=== PATIENT | male | born 1975 | race Caucasian/White ===

== ENCOUNTER 2024-06-26 05:09 | Inpatient (IN) | payer MEDICARE, SELFPAY ==
[2024-06-26] VITALS (14 sets, daily range): BP systolic 85–127; BP diastolic 42–74; PULSE 67–86; RESP 12–20; TEMP 36.4–37.4; O2SAT 93–98; BMI 29.8; BMI 30.3
--- NOTE | ~2024-06-26 | CT_ITS ---
EXAMINATION: CT ANGIOGRAM CHEST CLINICAL INFORMATION: Shortness of breath. Lightheadedness. COMPARISON: None available. TECHNIQUE: Multiple axial images were obtained through the chest after the administration of 65 mL of Omnipaque 350 intravenous contrast. Extensive vascular post-processing including two-dimensional and three-dimensional reformatted images were created and reviewed on an independent workstation. SmartPrep technique This CT examination was performed using dose optimization techniques as appropriate, variously including the following: *Automated exposure control *Adjustment of mA and/or kV according to patient size (this includes techniques or standardized protocols for targeted exams where dose is matched to indication/reason for exam; i.e. extremities or head) *Use of iterative reconstruction technique DLP: 353 mGy centimeter. FINDINGS: There is intraluminal filling defects within the subsegmental pulmonary branches to the left lower lung lobe.. No aneurysm or dissection, thoracic aorta. Patchy linear and confluent attenuation abnormality centered in the dome basis and lingula and to a lesser extent right middle lobe. No pleural effusion. No pneumothorax. No honeycombing. No lymphadenopathy. No pericardial effusion. 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 Metallic hardware from a posterior fusion extending from T10 and T11 to the lumbar spine no included in the exam. No acute fracture or gross listhesis. CT/CT angio chest PE protocol IMPRESSION: Acute pulmonary artery emboli, subsegmental pulmonary branches to the left lower lung lobe. Acute versus chronic airway disease, lung bases lingula and right middle lobe. Findings communicated to the requesting physician Dr. Tato Goff in the emergency department at 1:39 PM on June 26, 2024. Fleischner guidelines were followed. Electronically signed by: Dariel Romero MD 06/26/2024 01:43 PM EDT
--- NOTE | ~2024-06-26 | XR_ITS ---
CLINICAL HISTORY: Shortness of breath 1 view chest x-ray Comparison: None Findings: The lungs are clear. Heart size is normal. No acute fracture. IMPRESSION: 1. No acute findings. This document has been electronically signed by: Gregor Early MD on 06/26/2024 07:44:31
--- NOTE | ~2024-06-26 | US_ITS ---
CLINICAL HISTORY: PE, eval for source Venous duplex ultrasound bilateral lower extremity Comparison: None Findings: The visualized deep veins are fully compressible with normal Doppler color flow and spectral tracings. No popliteal cyst. IMPRESSION: 1. Negative for bilateral lower extremity deep vein thrombosis. This document has been electronically signed by: Kate Tom MD on 06/26/2024 20:48:31
--- NOTE | 2024-06-26 05:34 | ECG_ITS ---
Test Reason : SOB Blood Pressure : */* mmHG Vent. Rate : 70 BPM Atrial Rate : 70 BPM P-R Int : 200 ms QRS Dur : 88 ms QT Int : 418 ms P-R-T Axes : 29 72 35 degrees QTcB Int : 451 ms Normal sinus rhythm Possible Anterior infarct , age undetermined ; could be related to body habitus and lead placement Abnormal ECG No previous ECGs available Referred By: Lynn Hagen Electronically Signed By: BRENDEN SORENSEN
[2024-06-26 05:52] LABS: Basophils Percent Auto 0.9 % (0-2); Eosinophils Absolute Auto 0.2 X10*3/uL (0.0-0.4); Eosinophils Percent Auto 4.1 % (0-4); Hemoglobin 11.7 g/dl (14.0-18.0); Imm Gran Abs Auto 0.01 X10*3/uL (0.00-0.03); Imm Gran Pct Auto 0.2 % (0.0-0.4); Lymphocytes Absolute Auto 2.2 X10*3/uL (1.2-4.9); Lymphocytes Percent Auto 47.7 % (20-40); MANUAL DIFF FLAG NO; Mean Corpuscular HGB Conc 32.5 g/dl (31.0-36.0); Mean Corpuscular Hemoglobin 28.7 pg (27.0-33.0); Mean Corpuscular Volume 88.2 fL (80.0-98.0); Monocytes Absolute Auto 0.5 X10*3/uL (0.1-1.2); Monocytes Percent Auto 9.8 % (2-11); Neutrophils Absolute Auto 1.7 x10*3/uL (2.0-8.3); Neutrophils Percent Auto 37.3 % (45-73); Platelet Count 238 X10*3/uL (160-400); Red Blood Count 4.08 X10*6/uL (4.60-5.80); Red Cell Distribution Width 14.1 % (11.0-16.0); White Blood Count 4.6 X10*3/uL (4.8-10.8)
[2024-06-26 06:05] LABS: Alanine Aminotransferase 24 U/L (0-40); Albumin Level 3.4 g/dL (3.5-5.0); Alkaline Phosphatase 75 U/L (39-117); Anion Gap 13 (12-20); Aspartate Amino Transferase 23 U/L (5-37); Bilirubin Total 0.1 mg/dL (0.0-1.0); Blood Urea Nitrogen 17 mg/dL (9-16); Calcium 8.3 mg/dL (8.4-10.2); Carbon Dioxide 23 mmol/L (22-29); Chloride 105 mmol/L (96-108); Creatinine Clr Calc Pharmacy 128.3; Estimated Glomerular Filt Rate > 60; Glucose Random 152 mg/dL (60-115); Potassium 4.3 mmol/L (3.3-5.1); Sodium 137 mmol/L (135-145); Total Protein 6.7 g/dL (6.5-8.0)
[2024-06-26] MEDS: 0.9 % Sodium Chloride 2,328 ML 2328 ML IV (06:05)
[2024-06-26] MEDS: cefTRIAXone sodium 1 GM VIAL IVPUSH (06:07)
[2024-06-26 06:16] LABS: Troponin-I High Sensitivity < 2.7 ng/L (<3.5-35.0)
[2024-06-26 07:00] LABS: Lactic Acid 3.6 mmol/L (0.5-2.0)
--- NOTE | 2024-06-26 07:03 | ED_ITS ---
HPI - General Adult General Chief complaint: Dizziness Stated complaint: SYNCOPAL EPISODE/ FEELING WEAK AND FAINT Time Seen by Provider: 06/26/24 07:01 Source: patient, EMS and old records reviewed Mode of arrival: EMS Limitations: no limitations History of Present Illness ED Provider: Massiel Matson PA-C HPI narrative: This is a 49-year-old male, with a history of hyperlipidemia, you had instability, alcohol use disorder, opioid use disorder on methadone, depression, anxiety, who presents emergency department via EMS from [facility] with concerns for near-syncope. He awoke this morning 3:00 a.m. and requested to have a sandwich as he was hungry. He states that while he was sitting, he dozed off. He states that he felt very tired, and requested nursing staff to take his blood pressure, blood pressure was low at 80 over 40s, and patient appear to be diaphoretic. The nursing team called EMS for transportation. In route, patient was given 1 L of IV fluids. Patient reports that approximately 10 days ago he had the GI bug, and had significant amount of nausea and vomiting. He states that he is feeling much better. He denies any chest pain. He does report that he had some shortness for breath while he [place] the [place] blood [place], he states that this has since resolved. Denies history of problems with his blood pressure in the past. He states that he last used fentanyl 1 month ago. History of IVDA. He denies any recent fevers, chills, abdominal pain, nausea, vomiting or diarrhea. No urinary symptoms. Prior to my evaluation, patient was also given 2-1/2 L of IV fluids as well as IV ceftriaxone. Patient states that he has had recent illness, reports that 2 weeks ago he had the stomach bug however states that his symptoms have since resolved. He denies any recent fevers, chills, chest pain, SOB, abdominal pain, nausea, vomiting or diarrhea. No urinary frequency or urgency. No urinary symptoms. MD complaint: Near-syncope Onset (ago): day(s) Relieving factors: none Exacerbating factors: none Associated symptoms: denies other symptoms Related Data Home Medications ?Medication ?Instructions ?Recorded ?Confirmed atorvastatin 20 mg tablet 20 mg PO BEDTIME 06/26/24 06/26/24 bupropion HCl 150 mg 24 hr tablet, 150 mg PO BID 06/26/24 06/26/24 extended release divalproex 250 mg tablet,delayed 750 mg PO BID 06/26/24 06/26/24 release folic acid 1 mg tablet 1 mg PO DAILY 06/26/24 06/26/24 gabapentin 300 mg capsule 600 mg PO TID 06/26/24 06/26/24 methadone 10 mg/mL oral 55 mg PO DAILY 06/26/24 06/26/24 concentrate (Methadone Intensol) mirtazapine 7.5 mg tablet 7.5 mg PO BEDTIME 06/26/24 06/26/24 olanzapine 5 mg tablet 5 mg PO BEDTIME 06/26/24 06/26/24 Allergies Allergy/AdvReac Type Severity Reaction Status Date / Time ketamine AdvReac Unknown Verified 06/26/24 05:28 prazosin AdvReac Unknown Verified 06/26/24 05:28 Review of Systems 2 Review of Systems: Yes all other systems are reviewed and are negative Constitutional: Constitutional: Reports as per [facility] Past Medical History Medical History Mood disorder Alcohol use disorder Hyperlipidemia Methadone dependence Polysubstance abuse Social History Social History Smoked in Last 30 Days: Yes Substance Use Type: Crack/Cocaine, Heroin and Marijuana Substance Use Frequency: Chronic Longstanding Advance Directives: No Do you have a plan to hurt others: Clear, Organized and Specific Physical Exam ED Vital Signs: Vital Signs - 24 hr 06/26/24 05:10 06/26/24 05:32 06/26/24 06:04 Temperature 97.6 F 97.6 F 97.6 F Pulse Rate 76 75 67 Respiratory Rate 16 16 14 Blood Pressure 85/42 L 86/55 L 90/52 L Pulse Oximetry 98 96 97 Oxygen Delivery Method Room Air Room Air Room Air 06/26/24 06:28 06/26/24 08:21 06/26/24 10:49 Temperature 97.7 F Pulse Rate 71 76 69 Respiratory Rate 14 16 14 Blood Pressure 102/59 L 102/52 L 115/65 Pulse Oximetry 97 96 98 Oxygen Delivery Method Room Air Room Air Room Air 06/26/24 10:50 06/26/24 10:50 06/26/24 10:51 Temperature Pulse Rate 69 69 75 Respiratory Rate Blood Pressure 115/65 127/74 111/69 Pulse Oximetry Oxygen Delivery Method 06/26/24 11:26 Temperature Pulse Rate 75 Respiratory Rate 16 Blood Pressure 110/70 Pulse Oximetry 95 Oxygen Delivery Method Room Air BMI result Body Mass Index 29.8 Const General: cooperative, comfortable and no acute distress Orientation/consciousness: patient oriented x3 Limitations: no limitations HENMT Head: Yes normal to inspection, Yes normocephalic and Yes atraumatic Ears: hearing grossly normal bilaterally General nose exam: Normal external nose present Face and sinus: Yes normal facial exam Mouth: Normal oral and palatal mucosa present, oropharynx normal and moist mucous membranes Throat: Yes posterior oropharynx normal Eyes General: appearance normal, both eyes and all related structures Eyelids: Yes eyelids normal Conjunctivae: conjunctivae normal Sclerae: sclerae normal Pupils: Equal, round and reactive pupils present and Pinpoint pupils EOM: EOMs intact bilaterally Neck Neck: Yes normal visual inspection, Yes full ROM and Yes no lymphadenopathy Lymphatic: no lymphadenopathy noted Chest Chest palpation & inspection: normal inspection of the chest Resp Effort & Inspection: normal respiratory effort and able to speak in complete sentences Auscultation: clear to auscultation bilaterally, no crackles, no rales, no rhonchi and no wheezes Cardio Rate: regular rate Rhythm: regular rhythm Heart sounds: S1 normal heart sound present and S2 normal heart sound present GI Other: Abdomen is soft, nontender, nondistended Inspection: Yes normal to inspection Skin General skin exam: no rashes or lesions noted Trauma: no lacerations or abrasions Wounds: no wounds Neuro General: patient oriented x3 and moves all extremities Cranial nerves: Yes Equal, round and reactive pupils present Extrem Other: No peripheral edema. No calf tenderness. General: Yes normal to inspection Right upper extremity: normal to inspection Left upper extremity: normal to inspection Right lower extremity: normal to inspection Left lower extremity: normal to inspection Course Reevaluation(s) Reevaluation #1: Repeat lactic acidosis at 2.7. Patient well-appearing, eating and drinking without difficulty. Given history of IVDA, in the setting of hypotension, and syncopal episode, patient is needs to be admitted for further workup. Discussed with hospitalist, recommending CTA. He spoke to hospitalist stating that he was short of breath therefore CTA was obtained. Time: 10:11 Reevaluation #2: CTA positive for PE. Discussed findings with patient. He does report that he believes he had a blood clot in his upper arm in the past. He states that this was many years ago. He is unsure if he was on anticoagulation. He states that he is not on anticoagulation at this time. They will place patient on heparin drip. Transfer of care initiated. Medications Administered Generic Name Dose Route Start Last Admin Trade Name Freq PRN Reason Stop Dose Admin Gabapentin 600 mg 06/26/24 15:00 06/26/24 14:38 Gabapentin 300 Mg Capsule PO 600 mg TID MILTON Administration Heparin Sodium/Sodium Chloride 25,000 unit in 250 mls @ 0 mls/hr 06/26/24 14:15 06/26/24 15:57 Heparin Sodium,Porcine/1/2ns IVCONT 14 units/kg/hr .Q0M MILTON 13.97 mls/hr Administration Protocol Per Protocol Nicotine 21 mg 06/26/24 14:15 06/26/24 15:07 Nicotine 21 Mg Patch.Td24 TRANSDERMA Not Given DAILY MILTON Sodium Chloride 3 ml 06/26/24 16:00 06/26/24 15:08 0.9 % Sodium Chloride Flush 3 Ml Syringe IVFLUSH Not Given QSHIFT MILTON Discontinued Medications Generic Name Dose Route Start Last Admin Trade Name Freq PRN Reason Stop Dose Admin Ceftriaxone Sodium 1 gm 06/26/24 05:41 06/26/24 06:07 Ceftriaxone Sodium 1 Gm Vial IVPUSH 06/26/24 05:42 1 gm ONCE ONE Administration Heparin Sodium (Porcine) 8,000 unit 06/26/24 14:08 06/26/24 15:37 Heparin Sodium,Porcine 5,000 Unit/Ml Vial 80 unit/kg (8000 unit) 06/26/24 14:09 8,000 unit IVPUSH Administration ONCE ONE Sodium Chloride 2,328 mls @ 2,328 mls/hr 06/26/24 05:41 06/26/24 09:08 Ns IV 06/26/24 06:40 Infused .Q1H STA Infusion Iohexol 65 ml 06/26/24 13:00 06/26/24 13:00 Iohexol 350 Mg/Ml 75 Ml Infus..Btl IV 06/26/24 13:01 65 ml ONCE ONE Administration Lorazepam 1 mg 06/26/24 14:35 06/26/24 14:51 Lorazepam 1 Mg Tablet PO 06/26/24 14:36 1 mg ONCE ONE Administration Methadone HCl 55 mg 06/26/24 13:45 06/26/24 14:13 Methadone Hcl 20 Mg/2 Ml Oral.Conc PO 06/26/24 13:46 55 mg ONCE ONE Administration Medical Decision Making Medical Decision Making [facility] Narrative: This is a 49-year-old male who presents emergency department for evaluation of near syncopal episode which occurred this morning. Patient had presented 5:10 a.m. this morning, hypotensive at 85/42, all other vital signs within normal limits. Patient had labs ordered as well as IV fluids, and IV ceftriaxone as patient was coughing on his arrival therefore thought was patient potentially had a pneumonia. Labs revealing leukopenic at 4.6, he has a normocytic anemia with an H&H of 11.7/36, chemistry revealing no significant electrolyte derangement, no evidence of SONAL, mildly hyperglycemic at 152 calcium 8.3. Troponin less than 2.7, albumin 3.4. He has already received 2300 L of IV fluids as well as 1 g of ceftriaxone. We will cover for possible pneumonia. Also added viral swabs, BNP, CPK. Awaiting UA. Plan: Labs, EKG, chest x-ray, UA, further ER evaluation needed. Differential Diagnosis Differential Diagnoses: The differential diagnosis associated with the presentation includes UTI, pneumonia, electrolyte derangement, ACS Lab Data [facility] Lab Attestation statement: I reviewed the patient's lab results. Patient with leukopenia at 4.6, H&H 11.7/36. Chemistry with no evidence of SONAL. Hyperglycemic at 152. Lactic acidosis at 3.6, repeat 2.7, troponin x2 negative. BNP less than 10. Albumin 3.4. Urine with no evidence of infection. U tox positive for methadone, and fentanyl. 06/26/24 14:28 06/26/24 05:46 Labs: Lab Results 06/26/24 06/26/24 06/26/24 Range/Units 05:46 07:27 07:51 WBC 4.6 L (4.8-10.8) X10*3/uL RBC 4.08 L (4.60-5.80) X10*6/uL Hgb 11.7 L (14.0-18.0) g/dl Hct 36.0 L (42.0-52.0) % MCV 88.2 (80.0-98.0) fL MCH 28.7 (27.0-33.0) pg MCHC 32.5 (31.0-36.0) g/dl RDW 14.1 (11.0-16.0) % Plt Count 238 (160-400) X10*3/uL MPV 9.0 L (9.4-12.4) fL Immature Gran % (Auto) 0.2 (0.0-0.4) % Neut % (Auto) 37.3 L (45-73) % Lymph % (Auto) 47.7 H (20-40) % [place] % (Auto) 9.8 (2-11) % Eos % (Auto) 4.1 H (0-4) % Baso % (Auto) 0.9 (0-2) % Lymph # (Auto) 2.2 (1.2-4.9) X10*3/uL [place] # (Auto) 0.5 (0.1-1.2) X10*3/uL Eos # (Auto) 0.2 (0.0-0.4) X10*3/uL Baso # (Auto) 0.0 (0.0-0.2) X10*3/uL Abs Immat Gran (auto) 0.01 (0.00-0.03) X10*3/uL Absolute Neuts (auto) 1.7 L (2.0-8.3) x10*3/uL Absolute Nucleated RBC 0.000 (0.0-0.012) X10*3/uL Nucleated RBC % (auto) 0.0 (0.0-0.2) /100WBC Sodium 137 (135-145) mmol/L Potassium 4.3 (3.3-5.1) mmol/L Chloride 105 (96-108) mmol/L Carbon Dioxide 23 (22-29) mmol/L Anion Gap 13 (12-20) BUN 17 H (9-16) mg/dL Creatinine 0.87 (0.5-1.4) mg/dL Estim Creat Clear Calc 128.3 Estimated GFR > 60 Random Glucose 152 H (60-115) mg/dL Lactic Acid 3.6 H* (0.5-2.0) mmol/L Lactic Acid F/U @ 2Hr (0.5-2.0) mmol/L Lactic Acid F/U @ 4Hr (0.5-2.0) mmol/L Calcium 8.3 L (8.4-10.2) mg/dL Total Bilirubin 0.1 (0.0-1.0) mg/dL AST 23 (5-37) U/L ALT 24 (0-40) U/L Alkaline Phosphatase 75 (39-117) U/L Total Creatine Kinase 138 (38-174) U/L Troponin I High Sens < 2.7 (<3.5-35.0) ng/L B-Natriuretic Peptide < 10 (<100) pg/mL Total Protein 6.7 (6.5-8.0) g/dL Albumin 3.4 L (3.5-5.0) g/dL Urine Color Yellow Urine Appearance Clear Urine pH 7.0 (5.0-9.0) Ur Specific [place] <= 1.005 (1.005-1.025) Urine Protein Negative (Neg-Trace) mg/dL Urine Glucose (UA) Negative (Negative) mg/dL Urine Ketones Negative (Negative) mg/dL Urine Blood Negative (Negative) Urine Nitrite Negative (Negative) Ur Leukocyte Esterase Negative (Negative) Urine RBC 0-2 (0-2) /HPF Urine WBC 0-5 (0-5) /HPF Ur Squamous Epith Cells 0-2 (0-2) /HPF Urine Bacteria None Seen (None Seen) Hyaline Casts 0-2 (0-2) /LPF Urine Opiates Screen Not Detected (Not Detect) Ur Buprenorphine Scrn Not Detected (Not Detect) ng/mL Ur Oxycodone Screen Not Detected (Not Detect) ng/mL Urine Methadone Screen Positive H (Not Detect) ng/mL Urine Fentanyl Screen POSITIVE H (Not Detect) Ur Barbiturates Screen Not Detected (Not Detect) Ur Phencyclidine Scrn Not Detected (Not Detect) Ur Amphetamines Screen Not Detected (Not Detect) U Benzodiazepines Scrn Not Detected (Not Detect) Urine Cocaine Screen Not Detected (Not Detect) U Marijuana (THC) Screen Not Detected (Not Detect) Ethyl Alcohol < 10 mg/dL Influenza Type A (PCR) NEGATIVE (Negative) Influenza Type B (PCR) NEGATIVE (Negative) RSV RNA Qual (PCR) NEGATIVE (Negative) SARS-CoV-2 RNA (RT-PCR) NEGATIVE (Negative) 06/26/24 06/26/24 06/26/24 Range/Units 07:58 09:09 11:30 WBC (4.8-10.8) X10*3/uL RBC (4.60-5.80) X10*6/uL Hgb (14.0-18.0) g/dl Hct (42.0-52.0) % MCV (80.0-98.0) fL MCH (27.0-33.0) pg MCHC (31.0-36.0) g/dl RDW (11.0-16.0) % Plt Count (160-400) X10*3/uL MPV (9.4-12.4) fL Immature Gran % (Auto) (0.0-0.4) % Neut % (Auto) (45-73) % Lymph % (Auto) (20-40) % [place] % (Auto) (2-11) % Eos % (Auto) (0-4) % Baso % (Auto) (0-2) % Lymph # (Auto) (1.2-4.9) X10*3/uL [place] # (Auto) (0.1-1.2) X10*3/uL Eos # (Auto) (0.0-0.4) X10*3/uL Baso # (Auto) (0.0-0.2) X10*3/uL Abs Immat Gran (auto) (0.00-0.03) X10*3/uL Absolute Neuts (auto) (2.0-8.3) x10*3/uL Absolute Nucleated RBC (0.0-0.012) X10*3/uL Nucleated RBC % (auto) (0.0-0.2) /100WBC Sodium (135-145) mmol/L Potassium (3.3-5.1) mmol/L Chloride (96-108) mmol/L Carbon Dioxide (22-29) mmol/L Anion Gap (12-20) BUN (9-16) mg/dL Creatinine (0.5-1.4) mg/dL Estim Creat Clear Calc Estimated GFR Random Glucose (60-115) mg/dL Lactic Acid (0.5-2.0) mmol/L Lactic Acid F/U @ 2Hr 2.7 H* (0.5-2.0) mmol/L Lactic Acid F/U @ 4Hr 2.4 H* (0.5-2.0) mmol/L Calcium (8.4-10.2) mg/dL Total Bilirubin (0.0-1.0) mg/dL AST (5-37) U/L ALT (0-40) U/L Alkaline Phosphatase (39-117) U/L Total Creatine Kinase (38-174) U/L Troponin I High Sens < 2.7 (<3.5-35.0) ng/L B-Natriuretic Peptide (<100) pg/mL Total Protein (6.5-8.0) g/dL Albumin (3.5-5.0) g/dL Urine Color Urine Appearance Urine pH (5.0-9.0) Ur Specific [place] (1.005-1.025) Urine Protein (Neg-Trace) mg/dL Urine Glucose (UA) (Negative) mg/dL Urine Ketones (Negative) mg/dL Urine Blood (Negative) Urine Nitrite (Negative) Ur Leukocyte Esterase (Negative) Urine RBC (0-2) /HPF Urine WBC (0-5) /HPF Ur Squamous Epith Cells (0-2) /HPF Urine Bacteria (None Seen) Hyaline Casts (0-2) /LPF Urine Opiates Screen (Not Detect) Ur Buprenorphine Scrn (Not Detect) ng/mL Ur Oxycodone Screen (Not Detect) ng/mL Urine Methadone Screen (Not Detect) ng/mL Urine Fentanyl Screen (Not Detect) Ur Barbiturates Screen (Not Detect) Ur Phencyclidine Scrn (Not Detect) Ur Amphetamines Screen (Not Detect) U Benzodiazepines Scrn (Not Detect) Urine Cocaine Screen (Not Detect) U Marijuana (THC) Screen (Not Detect) Ethyl Alcohol mg/dL Influenza Type A (PCR) (Negative) Influenza Type B (PCR) (Negative) RSV RNA Qual (PCR) (Negative) SARS-CoV-2 RNA (RT-PCR) (Negative) Independent Interpretation I performed an independent interpretation of an: EKG Interpretation: EKG normal sinus rhythm at a ventricular rate of 70 beats per minute, MD interval 200, QT QTC 418/451. No ST elevation or depression. Radiology Impression Discussion of test interpretation with radiology: I have reviewed the radiologist's reading. Radiologist Impression: CLINICAL HISTORY: Shortness of breath 1 view chest x-ray Comparison: None Findings: The lungs are clear. Heart size is normal. No acute fracture. IMPRESSION: 1. No acute findings. This document has been electronically signed by: Gregor Early MD on 06/26/2024 07:44:31 Dictated By: Gregor Early MD CT/CT angio chest PE protocol IMPRESSION: Acute pulmonary artery emboli, subsegmental pulmonary branches to the left lower lung lobe. Acute versus chronic airway disease, lung bases lingula and right middle lobe. Findings communicated to the requesting physician Dr. Tato Goff in the emergency department at 1:39 PM on June 26, 2024. Fleischner guidelines were followed. Electronically signed by: Dariel Romero MD 06/26/2024 01:43 PM EDT RP Dictated By: Dariel Hoffman MD Chronic Conditions Patient?s care impacted by: Other (History of IVDA) Discharge Plan Discharge Clinical Impression: Acidosis, lactic, Near syncope, Pulmonary embolism Patient Disposition: Still a Patient
[2024-06-26 07:53] LABS: B Type Natriuretic Peptide < 10 pg/mL (<100)
[2024-06-26 08:02] LABS: Appearance Urine Clear; Color Urine Yellow; Glucose Urine UA Negative (Negative); Leukocyte Esterase Urine Negative (Negative); Nitrite Urine Negative (Negative); Specific Gravity - Urine <= 1.005 (1.005-1.025); Urine Blood Negative (Negative); Urine Ketones Negative (Negative); Urine Protein Negative (Neg-Trace)
[2024-06-26 08:04] LABS: Bacteria Urine None Seen (None Seen); Hyaline Casts Urine 0-2 /LPF (0-2); RBC Urine 0-2 /HPF (0-2); Squamous Epithelial Cell Urine 0-2 /HPF (0-2); WBC Urine 0-5 /HPF (0-5)
[2024-06-26 08:11] LABS: Influenza A PCR NEGATIVE (Negative); Influenza B PCR NEGATIVE (Negative); Resp Syncy Virus RNA Qual PCR NEGATIVE (Negative); SARS COV2 PCR INHOUSE NEGATIVE (Negative)
[2024-06-26 08:12] LABS: Amphetamine Screen Urine Not Detected (Not Detect); Barbiturates, Urine Not Detected (Not Detect); Benzodiazepines Screen Urine Not Detected (Not Detect); Buprenorphine Scr Not Detected (Not Detect); Cannabinoid Screen Urine Not Detected (Not Detect); Cocaine Screen Urine Not Detected (Not Detect); Fentanyl, urine POSITIVE (Not Detect); Methadone Screen, Urine Positive (Not Detect); Opiate Screen Urine Not Detected (Not Detect); Oxycodone Screen Urine Not Detected (Not Detect); Phencyclidine Screen Urine Not Detected (Not Detect)
[2024-06-26 08:27] LABS: Troponin-I High Sensitivity < 2.7 ng/L (<3.5-35.0)
[2024-06-26 08:33] LABS: Reflex Lactate? Lactic Acid Added
[2024-06-26 09:35] LABS: Ethanol < 10 mg/dL
[2024-06-26 09:46] LABS: ~Lactic Acid-LAB USE ONLY 2.7 mmol/L (0.5-2.0)
[2024-06-26 11:13] LABS: Reflex Lactate? 2 Y
[2024-06-26 12:00] LABS: ~Lactic Acid-LAB USE ONLY 2.4 mmol/L (0.5-2.0)
--- NOTE | 2024-06-26 12:00 | PC.NURSE ---
Methadone dose verification: [facility] [address] [facility], [place] Dose verified with JOSUE Anthony [phone] Last dose: 06/18/24 @ 07:23am, Methadone 55mg PO Dosing verification form faxed to pharmacy by this RN.
--- NOTE | 2024-06-26 12:28 | HE.PHANOTE ---
Addendum entered by [facility], located within [facility] 06/26/24 13:44: New form sent up, pt last received 55mg on 06/25 per Colleen Naranjo ([phone]) at [facility]. Original Note: METHADONE Pt last received 55mg on 06/18/24 @ 0723 at [place], [place], per JOSUE Anthony.
--- NOTE | 2024-06-26 12:45 | PHA.MEDREC ---
Pharmacy Consult ? Medication Reconciliation Pharmacy has completed the medication reconciliation. Received medication list from [facility], used this to confirm home meds
[2024-06-26] MEDS: iohexoL 350 MG/ML 75 ML INFUS..BTL 65 ML IV (13:00)
--- NOTE | 2024-06-26 13:36 | PC.NURSE ---
THIS RN RECEIVED A CALL FROM PTS RN AT [facility]. SHE VERIFIED THAT PTS METHADONE DOSE IS 55 MG, LAST RECEIVED YEST MORNING
--- NOTE | 2024-06-26 14:12 | P.HPHOSP_ITS ---
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 Patient reports he developed lightheadedness and shortness of breath both at rest and with exertion last night which persisted until this morning. He was reported to be hypotensive with systolic blood pressure in the 70s. He states he did a GI illness about 10 days ago but has fully resolved and he has been eating and drinking without difficulty. He denies any headache, visual changes, cough, nausea, vomiting, diarrhea, urinary symptoms, palpitations, or chest pain. He reports that while ambulating in the ED, he has had some shortness of breath with exertion but lightheadedness has not recurred. He states he also feels generally weak. He reports his last IV drug abuse was about 9 months ago and has been stable on his dose of methadone since February. He does report history of clot in the right upper extremity for which he was admitted for anticoagulation and took blood thinners at home for an unknown period of time. He states this was years ago. Denies any known history of clotting disorder. Unsure of family history. Denies any recent travel. He has been treated for alcohol withdrawal with discontinuation of Valium and Ativan 06/23. Denies any going symptoms of withdrawal. On arrival to the ED patient was hypotensive to 85/42 with improvement to 127/74 following IV fluid resuscitation which did also improve his lightheadedness. Hematology studies significant for mild leukopenia of 4.6 and a normocytic anemia with H/H 11.7/36.0%. Renal function within normal limits, electrolyte levels normal. Initial lactic acid 3.6 with repeats of 2.7 and 2.4. Hepatic function within limits. Troponin undetectable x2. BNP undetectable. Urinalysis unremarkable. Negative for influenza, COVID-19, RSV urine drug screen positive for fentanyl and methadone. EKG shows NSR without any ST or depressions. CXR unremarkable. Chest CTA acute subsegmental pulmonary emboli branching to the left lower lung lobe. Patient will be admitted for further management of acute pulmonary embolism. Review of Systems 2 Review of Systems: Yes all other systems are reviewed and are negative PMFSH Medical History Mood disorder Alcohol use disorder Hyperlipidemia Methadone dependence Polysubstance abuse Social History Smoked in Last 30 Days: Yes Substance Use Type: Crack/Cocaine, Heroin and Marijuana Substance Use Frequency: Chronic Longstanding Advance Directives: No Do you have a plan to hurt others: Clear, Organized and Specific Meds Allergies Allergy/AdvReac Type Severity Reaction Status Date / Time ketamine AdvReac Unknown Verified 06/26/24 05:28 prazosin AdvReac Unknown Verified 06/26/24 05:28 Active Medications: Current Medications Heparin Sodium (Porcine) (Heparin Sodium,Porcine 5,000 Unit/Ml Vial) 8,000 unit 80 unit/kg (8000 unit) IVPUSH ONCE ONE Stop: 06/26/24 14:09 Heparin Sodium (Porcine) (Heparin Sodium,Porcine 5,000 Unit/Ml Vial) 4,000 unit 40 unit/kg (4000 unit) IVPUSH PROTOCOL BOLUS PRN; Protocol PRN Reason: 40 unit/kg - Heparin Protocol Heparin Sodium (Porcine) (Heparin Sodium,Porcine 5,000 Unit/Ml Vial) 8,000 unit 80 unit/kg (8000 unit) IVPUSH PROTOCOL BOLUS PRN; Protocol PRN Reason: 80 unit/kg - Heparin Protocol Heparin Sodium/Sodium Chloride (Heparin Sodium,Porcine/1/2ns) 25,000 unit in 250 mls @ 0 mls/hr IVCONT .Q0M [place]; Protocol Home Medications ?Medication ?Instructions ?Recorded ?Confirmed ?Last Taken ?Type atorvastatin 20 mg tablet 20 mg PO BEDTIME 06/26/24 06/26/24 Unknown History bupropion HCl 150 mg 24 hr tablet, 150 mg PO BID 06/26/24 06/26/24 Unknown History extended release divalproex 250 mg tablet,delayed 750 mg PO BID 06/26/24 06/26/24 Unknown History release folic acid 1 mg tablet 1 mg PO DAILY 06/26/24 06/26/24 Unknown History gabapentin 300 mg capsule 600 mg PO TID 06/26/24 06/26/24 Unknown History methadone 10 mg/mL oral 55 mg PO DAILY 06/26/24 06/26/24 06/25/24 History concentrate (Methadone Intensol) mirtazapine 7.5 mg tablet 7.5 mg PO BEDTIME 06/26/24 06/26/24 Unknown History olanzapine 5 mg tablet 5 mg PO BEDTIME 06/26/24 06/26/24 Unknown History Physical Exam 2 Vital Signs and Narrative: Vital Signs: Last Vital Signs Temp 97.7 F 06/26/24 06:28 Pulse 75 06/26/24 11:26 Resp 16 06/26/24 11:26 BP 110/70 06/26/24 11:26 Pulse Ox 95 06/26/24 11:26 O2 Del Method Room Air 06/26/24 11:26 BMI result Body Mass Index 29.8 Constitutional - Awake and Alert, No apparent distress Eyes - PERRLA, EOMI Cardiovascular - S1S2, RRR, No edema Respiratory - Normal lung expansion, Normal respiratory effort, No respiratory distress, CTA bilaterally Gastrointestinal - NT / ND; +BS; No rebound or guarding Extremities - no calf tenderness bilaterally, no swelling Skin - Warm/Dry Neurological - Alert & oriented x3, CN II-XII in tact, 5/5 strength BUE and BLE Psychological - anxious appearing Results Labs 06/26/24 14:28 06/26/24 05:46 Labs: Laboratory Results - last 24 hr 06/26/24 06/26/24 06/26/24 05:46 07:27 07:51 MCV 88.2 MCH 28.7 MCHC 32.5 RDW 14.1 Plt Count 238 MPV 9.0 L Immature Gran % (Auto) 0.2 Neut % (Auto) 37.3 L Lymph % (Auto) 47.7 H [place] % (Auto) 9.8 Eos % (Auto) 4.1 H Baso % (Auto) 0.9 Lymph # (Auto) 2.2 [place] # (Auto) 0.5 Eos # (Auto) 0.2 Baso # (Auto) 0.0 Abs Immat Gran (auto) 0.01 Absolute Neuts (auto) 1.7 L Absolute Nucleated RBC 0.000 Nucleated RBC % (auto) 0.0 Anion Gap 13 Estim Creat Clear Calc 128.3 Estimated GFR > 60 Random Glucose 152 H Lactic Acid 3.6 H* Lactic Acid F/U @ 2Hr Lactic Acid F/U @ 4Hr Calcium 8.3 L Total Bilirubin 0.1 AST 23 ALT 24 Alkaline Phosphatase 75 Total Creatine Kinase 138 B-Natriuretic Peptide < 10 Total Protein 6.7 Albumin 3.4 L Urine Color Yellow Urine Appearance Clear Urine pH 7.0 Ur Specific [place] <= 1.005 Urine Protein Negative Urine Glucose (UA) Negative Urine Ketones Negative Urine Blood Negative Urine Nitrite Negative Ur Leukocyte Esterase Negative Urine RBC 0-2 Urine WBC 0-5 Ur Squamous Epith Cells 0-2 Urine Bacteria None Seen Hyaline Casts 0-2 Urine Opiates Screen Not Detected Ur Buprenorphine Scrn Not Detected Ur Oxycodone Screen Not Detected Urine Methadone Screen Positive H Urine Fentanyl Screen POSITIVE H Ur Barbiturates Screen Not Detected Ur Phencyclidine Scrn Not Detected Ur Amphetamines Screen Not Detected U Benzodiazepines Scrn Not Detected Urine Cocaine Screen Not Detected U Marijuana (THC) Screen Not Detected Ethyl Alcohol < 10 Influenza Type A (PCR) NEGATIVE Influenza Type B (PCR) NEGATIVE RSV RNA Qual (PCR) NEGATIVE SARS-CoV-2 RNA (RT-PCR) NEGATIVE 06/26/24 06/26/24 09:09 11:30 MCV MCH MCHC RDW Plt Count MPV Immature Gran % (Auto) Neut % (Auto) Lymph % (Auto) [place] % (Auto) Eos % (Auto) Baso % (Auto) Lymph # (Auto) [place] # (Auto) Eos # (Auto) Baso # (Auto) Abs Immat Gran (auto) Absolute Neuts (auto) Absolute Nucleated RBC Nucleated RBC % (auto) Anion Gap Estim Creat Clear Calc Estimated GFR Random Glucose Lactic Acid Lactic Acid F/U @ 2Hr 2.7 H* Lactic Acid F/U @ 4Hr 2.4 H* Calcium Total Bilirubin AST ALT Alkaline Phosphatase Total Creatine Kinase B-Natriuretic Peptide Total Protein Albumin Urine Color Urine Appearance Urine pH Ur Specific [place] Urine Protein Urine Glucose (UA) Urine Ketones Urine Blood Urine Nitrite Ur Leukocyte Esterase Urine RBC Urine WBC Ur Squamous Epith Cells Urine Bacteria Hyaline Casts Urine Opiates Screen Ur Buprenorphine Scrn Ur Oxycodone Screen Urine Methadone Screen Urine Fentanyl Screen Ur Barbiturates Screen Ur Phencyclidine Scrn Ur Amphetamines Screen U Benzodiazepines Scrn Urine Cocaine Screen U Marijuana (THC) Screen Ethyl Alcohol Influenza Type A (PCR) Influenza Type B (PCR) RSV RNA Qual (PCR) SARS-CoV-2 RNA (RT-PCR) Imaging Radiologist's Impressions: Impressions Chest CTA 06/26/24 12:52 IMPRESSION: Acute pulmonary artery emboli, subsegmental pulmonary branches to the left lower lung lobe. Acute versus chronic airway disease, lung bases lingula and right middle lobe. Findings communicated to the requesting physician Dr. Tato Goff in the emergency department at 1:39 PM on June 26, 2024. Fleischner guidelines were followed. 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 Has history of right upper extremity DVT -echocardiogram -monitor on telemetry # hypotension -possibly orthostatic given improvement with IV fluids, less likely related to above given improvement with fluids -close monitoring of vital signs #Acute lactic acidosis -likely r/t poor perfusion from hypotension, not sepsis # mood disorder with HI -continue medications initiated [facility] consult -will need care team consult once medically cleared # alcohol use disorder -no acute withdrawal # hyperlipidemia -statin DVT prophylaxis-heparin per protocol Full code Section 12 filed. Will require care team evaluation due to SI/HI for which he was admitted to [facility]. Discussed with psychiatry Patient requires inpatient stay least 2 midnights for management of acute pulmonary embolism requiring IV heparin and expert consultation Quality Stroke Does the patient have a stroke diagnosis?: No VTE Prior VTE?: No VTE Risk Level:: Medical - moderate - high VTE Device Contraindication: Treatment Not Indicated VTE Drug Contraindication: N/A - Med Ordered
[2024-06-26] MEDS: methADONE HCl 20 MG/2 ML ORAL.CONC 55 MG PO (14:13)
[2024-06-26 14:35] LABS: Hematocrit 35.3 % (42.0-52.0); Hemoglobin 11.6 g/dl (14.0-18.0); Mean Corpuscular HGB Conc 32.9 g/dl (31.0-36.0); Mean Corpuscular Hemoglobin 29.2 pg (27.0-33.0); Mean Corpuscular Volume 88.9 fL (80.0-98.0); Mean Platelet Volume 9.3 fL (9.4-12.4); Platelet Count 231 X10*3/uL (160-400); Red Blood Count 3.97 X10*6/uL (4.60-5.80); White Blood Count 4.7 X10*3/uL (4.8-10.8)
[2024-06-26] MEDS: Gabapentin 300 MG CAPSULE 600 MG PO ×2 (14:38→20:29)
[2024-06-26 14:43] LABS: INTERNATIONAL NORM RATIO 0.9 (0.9-1.1); Prothrombin Time 10.8 SEC (10.9-12.4)
[2024-06-26 14:47] LABS: D Dimer High Sensitivity < 150 NG/ML
[2024-06-26] MEDS: LORazepam 1 MG TABLET PO ×2 (14:51→22:28)
[2024-06-26 15:14] LABS: Partial Thromboplastin Time 32.2 SEC (26.0-36.8)
[2024-06-26] MEDS: Heparin Sodium,Porcine 5,000 UNIT/ML VIAL 8000 UNIT IVPUSH (15:37)
--- NOTE | 2024-06-26 15:42 | P.CNHO_ITS ---
Subjective - Subjective Chief complaint: Shortness of breath and dizziness Patient: new to practice Consult date: 06/26/24 Primary Care Provider: Unknown Physician [employer]utter Utilized?: No - [place] Speaking HPI - Consult Narrative Reason for consult: Pulmonary emboli Narrative: José Luis Adames is a 49 year old male with history of IV drug abuse in remission, mood disorder who presented to ED from [facility] where he was being treated for alcohol withdrawal. Patient reports he developed lightheadedness and shortness of breath both at rest and with exertion last night which persisted until this morning. He was reported to be hypotensive with systolic blood pressure in the 70s. He states he did a GI illness about 10 days ago but has fully resolved and he has been eating and drinking without difficulty. He denies any headache, visual changes, cough, nausea, vomiting, diarrhea, urinary symptoms, palpitations, or chest pain. He reports that while ambulating in the ED, he has had some shortness of breath with exertion but lightheadedness has not recurred. He states he also feels generally weak. He reports his last IV drug abuse was about 9 months ago and has been stable on his dose of methadone since February. Denies any known history of clotting disorder. Unsure of family history. Denies any recent travel. He has been treated for alcohol withdrawal with discontinuation of Valium and Ativan 06/23. Denies any going symptoms of withdrawal. On arrival to the ED patient was hypotensive to 85/42 with improvement to 127/74 following IV fluid resuscitation which did also improve his lightheadedness. Hematology studies significant for mild leukopenia of 4.6 and a normocytic anemia with H/H 11.7/36.0%. Renal function within normal limits, electrolyte levels normal. Chest CTA acute subsegmental pulmonary emboli branching to the left lower lung lobe. Patient will be admitted for further management of acute pulmonary embolism. Patient states that he was treated for thrombosis involving right upper extremity many years ago. This occurred in the setting of IV drug abuse. He says he was on anticoagulation for about 2 weeks. He denies any recent surgery or lower extremity trauma. Review of Systems - Constitutional Denies lack of energy, Denies malaise, Denies night sweats, Denies weakness PMFSH Medical History: Medical History (Last Reviewed 06/26/24 @ 14:35 by JOSEPH Lee) Alcohol use disorder Hyperlipidemia Methadone dependence Mood disorder Polysubstance abuse Social History: Social History (Last Reviewed 06/26/24 @ 14:35 by JOSEPH Lee) Alcohol History Details: 1. How often do you have a drink containing alcohol?: b. Monthly or less Tobacco History: Smoked in Last 30 Days: Yes Substance Use History: Substance Use Type: Crack/Cocaine Substance Use Type: Heroin Substance Use Type: Marijuana Substance Use Frequency: Chronic Longstanding Advance Directives: Advance Directives: No Advance Directives Information Provided: Advance Directives Information Provided comment: declined Homicidal Assessment: Do you have a plan to hurt others: Clear Do you have a plan to hurt others: Organized Do you have a plan to hurt others: Specific Home Medications and Allergies Current Medications: Current Medications Acetaminophen (Acetaminophen 325 Mg Tablet) 650 mg PO Q6H PRN PRN Reason: Pain, Mild 1-3,fever,headache Atorvastatin Calcium (Atorvastatin Calcium 20 Mg Tablet) 20 mg PO BEDTIME [place] Bupropion HCl (Bupropion Hcl Xl 150 Mg Tab.Er.24h) 150 mg PO BID [facility] Calcium Carbonate (Calcium Carbonate 750 Mg Tab.Chew) 750 mg PO Q4H PRN PRN Reason: Heartburn Divalproex Sodium (Divalproex Sodium 250 Mg Tablet.Dr) 750 mg PO BID [facility] Folic Acid (Folic Acid 1 Mg Tablet) 1 mg PO DAILY [facility] Gabapentin (Gabapentin 300 Mg Capsule) 600 mg PO TID [facility] Last Admin: 06/26/24 14:38 Dose: 600 mg Heparin Sodium (Porcine) (Heparin Sodium,Porcine 5,000 Unit/Ml Vial) 4,000 unit 40 unit/kg (4000 unit) IVPUSH PROTOCOL BOLUS PRN; Protocol PRN Reason: 40 unit/kg - Heparin Protocol Heparin Sodium (Porcine) (Heparin Sodium,Porcine 5,000 Unit/Ml Vial) 8,000 unit 80 unit/kg (8000 unit) IVPUSH PROTOCOL BOLUS PRN; Protocol PRN Reason: 80 unit/kg - Heparin Protocol Heparin Sodium/Sodium Chloride (Heparin Sodium,Porcine/1/2ns) 25,000 unit in 250 mls @ 0 mls/hr IVCONT .Q0M [facility]; Protocol Magnesium Hydroxide (Milk Of Magnesia 30 Ml Oral.Susp) 30 ml PO DAILY PRN PRN Reason: Constipation Melatonin (Melatonin 3 Mg Tablet) 6 mg PO BEDTIME PRN PRN Reason: Insomnia Methadone HCl (Methadone Hcl 20 Mg/2 Ml Oral.Conc) 55 mg PO DAILY [facility] Mirtazapine (Mirtazapine 7.5 Mg Tablet) 7.5 mg PO BEDTIME [facility] Nicotine (Nicotine 21 Mg Patch.Td24) 21 mg TRANSDERMA DAILY [facility] Last Admin: 06/26/24 15:07 Dose: Not Given Nicotine Polacrilex (Nicotine Polacrilex Lozenge 2 Mg Lozenge) 2 mg BUCCAL Q2H PRN PRN Reason: Nicotine Cravings Olanzapine (Olanzapine 5 Mg Tablet) 5 mg PO BEDTIME [place] Ondansetron HCl (Ondansetron Hcl 4 Mg/2 Ml Vial) 4 mg IVPUSH Q8H PRN PRN Reason: Nausea and Vomiting Sodium Chloride (0.9 % Sodium Chloride Flush 3 Ml Syringe) 3 ml IVFLUSH QSHIFT [facility] Last Admin: 06/26/24 15:08 Dose: Not Given Home Medications ?Medication ?Instructions ?Recorded ?Confirmed ?Type atorvastatin 20 mg tablet 20 mg PO BEDTIME 06/26/24 06/26/24 History bupropion HCl 150 mg 24 hr tablet, 150 mg PO BID 06/26/24 06/26/24 History extended release divalproex 250 mg tablet,delayed 750 mg PO BID 06/26/24 06/26/24 History release folic acid 1 mg tablet 1 mg PO DAILY 06/26/24 06/26/24 History gabapentin 300 mg capsule 600 mg PO TID 06/26/24 06/26/24 History methadone 10 mg/mL oral 55 mg PO DAILY 06/26/24 06/26/24 History concentrate (Methadone Intensol) mirtazapine 7.5 mg tablet 7.5 mg PO BEDTIME 06/26/24 06/26/24 History olanzapine 5 mg tablet 5 mg PO BEDTIME 06/26/24 06/26/24 History Allergies Allergy/AdvReac Type Severity Reaction Status Date / Time ketamine AdvReac Unknown Verified 06/26/24 05:28 prazosin AdvReac Unknown Verified 06/26/24 05:28 Physical Exam Vital signs: Vital Signs Temp 97.8 F 06/26/24 14:39 Pulse 83 06/26/24 14:39 Resp 16 06/26/24 14:39 BP 119/68 06/26/24 14:39 Pulse Ox 95 06/26/24 14:39 O2 Del Method Room Air 03/11/25 14:39 Intake & Output 06/25/24 06/26/24 06/26/24 18:59 06:59 18:59 Intake Total 2327 Balance 2327 Intake: Intake, IV Amount 2327 / 232 0.9 % Sodium Chloride 2,328 ml 2327 / 2328 @ 2328 mls/hr IV .Q1H [facility] Rx#: [id number] Other: Weight 99.79 kg 101.3 kg [place] Weight in Grams [id number] Weight 101.3 kg - Constitutional Present: no acute distress, average body habitus - Routine HEENT Exam Head: Present: normal inspection Eye: Present: EOMI, PERRL - Routine Neck Exam Present: supple. Absent: lymphadenopathy - Routine Respiratory Exam Present: CTAB - Routine Cardiovascular Exam Cardiovascular: Present: RRR, S1, S2 - Routine Abdominal Exam Present: soft - Routine Extremities Exam Present: pulses intact. Absent: pedal edema - Routine Skin Exam Present: intact Hem/Onc Consult Result - Labs CBC & Chem 7: 06/26/24 14:28 06/26/24 05:46 Labs: Short CBC 06/26/24 06/26/24 Range/Units 05:46 14:28 WBC 4.6 L 4.7 L (4.8-10.8) X10*3/uL Hgb 11.7 L 11.6 L (14.0-18.0) g/dl Hct 36.0 L 35.3 L (42.0-52.0) % Plt Count 238 231 (160-400) X10*3/uL BMP 06/26/24 05:46 Sodium 137 Potassium 4.3 Chloride 105 Carbon Dioxide 23 BUN 17 H Creatinine 0.87 Calcium 8.3 L Cardiac Enzymes 06/26/24 Range/Units 05:46 Total Creatine Kinase 138 (38-174) U/L Liver Function 06/26/24 Range/Units 05:46 Total Bilirubin 0.1 (0.0-1.0) mg/dL AST 23 (5-37) U/L ALT 24 (0-40) U/L Alkaline Phosphatase 75 (39-117) U/L Albumin 3.4 L (3.5-5.0) g/dL Urine 06/26/24 Range/Units 07:51 Urine Color Yellow Urine Appearance Clear Urine pH 7.0 (5.0-9.0) Ur Specific [place] <= 1.005 (1.005-1.025) Urine Protein Negative (Neg-Trace) mg/dL Urine Glucose (UA) Negative (Negative) mg/dL Assessment and Plan Patient Active problem list reviewed?: Yes (1) Pulmonary embolism Status: Acute Assessment and plan: 1. This is a 49-year-old male past medical history significant for IV drug abuse, currently in remission who is being admitted for acute pulmonary emboli. CT angiogram performed 06/26/2024 shows subsegmental pulmonary emboli in the left lower lung. Echocardiogram is pending. He was briefly hypotensive, this responded to fluid resuscitation. He does not have large clot burden to explain hypotension. Agree with IV heparin for now. Patient was advised about smoking cessation, he is a chronic smoker. He can be transitioned to Eliquis when he is hemodynamically stable. No thrombophilia workup is indicated at this time. He would be a candidate for long-term anticoagulation as he has had a spontaneous thromboembolism. I also recommended bilateral lower extremity Doppler to see if source can be found. I thank you for the consultation. - Time Spent With Patient Time Spent with Patient (in minutes): 25 Additional Coding: - Additional E/M codes Complex E/M visit Add On: CPT G2211
[2024-06-26] MEDS: Heparin Sodium,Porcine/1/2NS 25,000 UNIT/250 ML IV.SOLN 13.97 UNIT IVCONT (15:57)
[2024-06-26] MEDS: Atorvastatin Calcium 20 MG TABLET PO (20:29)
[2024-06-26] MEDS: Nicotine Polacrilex Lozenge 2 MG LOZENGE BUCCAL (20:29)
[2024-06-26] MEDS: OLANZapine 5 MG TABLET PO (20:29)
[2024-06-26] MEDS: Mirtazapine 7.5 MG TABLET PO (20:29)
[2024-06-26] MEDS: Divalproex Sodium 250 MG TABLET.DR 750 MG PO (20:29)
[2024-06-26] MEDS: buPROPion HCl XL 150 MG TAB.ER.24H PO (20:29)
[2024-06-26] MEDS: 0.9 % Sodium Chloride Flush 3 ML SYRINGE IVFLUSH (20:30)
[2024-06-26 22:15] LABS: PTT Heparin Drip 66.7 SEC (53-77.9)
[2024-06-27] VITALS (8 sets, daily range): BP systolic 116–134; BP diastolic 63–83; PULSE 71–91; RESP 17–20; TEMP 36.4–37.1; O2SAT 93–96
[2024-06-27 04:28] LABS: PTT Heparin Drip 57.9 SEC (53-77.9)
[2024-06-27] MEDS: Nicotine Polacrilex Lozenge 2 MG LOZENGE BUCCAL ×6 (04:58→21:24)
[2024-06-27 06:22] LABS: MANUAL DIFF FLAG NO
[2024-06-27 06:25] LABS: Basophils Absolute Auto 0.1 X10*3/uL (0.0-0.2); Basophils Percent Auto 1.2 % (0-2); Eosinophils Absolute Auto 0.2 X10*3/uL (0.0-0.4); Eosinophils Percent Auto 3.3 % (0-4); Hematocrit 37.7 % (42.0-52.0); Imm Gran Abs Auto 0.01 X10*3/uL (0.00-0.03); Imm Gran Pct Auto 0.2 % (0.0-0.4); Lymphocytes Absolute Auto 2.8 X10*3/uL (1.2-4.9); Lymphocytes Percent Auto 49.8 % (20-40); Mean Corpuscular HGB Conc 31.8 g/dl (31.0-36.0); Mean Corpuscular Hemoglobin 28.5 pg (27.0-33.0); Mean Corpuscular Volume 89.5 fL (80.0-98.0); Mean Platelet Volume 9.8 fL (9.4-12.4); Monocytes Absolute Auto 0.5 X10*3/uL (0.1-1.2); Monocytes Percent Auto 8.1 % (2-11); Neutrophils Absolute Auto 2.1 x10*3/uL (2.0-8.3); Neutrophils Percent Auto 37.4 % (45-73); Platelet Count 253 X10*3/uL (160-400); Red Blood Count 4.21 X10*6/uL (4.60-5.80); Red Cell Distribution Width 14.1 % (11.0-16.0); White Blood Count 5.7 X10*3/uL (4.8-10.8)
[2024-06-27 06:34] LABS: PTT Heparin Drip 52.7 SEC (53-77.9)
[2024-06-27 06:40] LABS: Anion Gap 15 (12-20); Blood Urea Nitrogen 17 mg/dL (9-16); Calcium 9.3 mg/dL (8.4-10.2); Carbon Dioxide 27 mmol/L (22-29); Chloride 103 mmol/L (96-108); Creatinine Clr Calc Pharmacy 134.5; Estimated Glomerular Filt Rate > 60; Glucose Random 130 mg/dL (60-115); Potassium 4.5 mmol/L (3.3-5.1); Sodium 140 mmol/L (135-145)
--- NOTE | 2024-06-27 07:00 | CA_ITS ---
Transthoracic Echocardiogram Patient (Last, First, Middle): José Luis Adames, Gender: Male Date of : 1975 Age: 49 Procedure Date: 06/27/2024 Procedure Type: Transthoracic [place]ocardi[place] [facility] [place]: 182.88 cm Weight: 99.34 kg BSA: 2.21 m2 Heart Rate: bpm BP: 116 / 72 mmHg Care Program Director: SB Referring MD: Karoline RUIZ Symptoms: bilateral PE Study Quality: Fair ECG Rhythm: Sinus Conclusions: - The left ventricular systolic function is normal. The calculated ejection fraction is 66% by biplane method. - The basal inferior and basal inferolateral segments are hypokinetic. - No obvious valvular pathology seen on this study. Findings Procedure Information The study quality is limited by lung artifact. Left Ventricle Normal left ventricular cavity size. There is normal left ventricular wall thickness. The left ventricular systolic function is normal. The calculated ejection fraction is 66% by biplane method. Diastolic function is normal for age. Wall Motion Rest Echo Findings The basal inferior and basal inferolateral segments are hypokinetic. Right Ventricle Normal right ventricular cavity size and systolic function. Atria Both atria are normal in size. Aortic Valve There is a normal trileaflet aortic valve. There is no aortic valve stenosis. There is no aortic valve regurgitation. Mitral Valve The mitral valve appears normal. There is no mitral valve regurgitation. There is no mitral valve stenosis. Pulmonic Valve The pulmonic valve is likely normal. Tricuspid Valve There is no tricuspid valve regurgitation. There is no evidence of pulmonary hypertension. Great Vessels The asc aorta and aortic arch are normal in size. Venous The inferior vena cava is normal in size and collapses less than 50% with inspiration. Pericardium/Pleural There is no evidence of pericardial effusion. Prior Study Comparison No prior study available for comparison. Recommendations, Care & Conclusions No obvious valvular pathology seen on this study. Measurements 2D Linear Measurements IVSd: 0.73 0.6-0.9/0.6-1.0 cm LVIDd: 4.79 3.9-5.3/4.2-5.9 cm LVIDd Index: 2.17 2.4-3.2/2.2-3.1 cm/m2 LVIDs: 3.31 2.0-3.6 cm LVPWd: 0.66 0.7-1.1 cm LA Diam: 4.00 2.7-3.8/3.0-4.0 cm LAIDs Index: 1.81 1.5-2.3 cm/m2 LV Mass: 131.05 67-162/88-224 g LV Mass Index: 59.30 43-95/49-115 g/m2 LVOT Diam: 2.00 3.0+(-)1.3 cm 2D Systolic Function EF 4C: 66.00 >55% EF 2C: 64.40 >55% EF BiP: 65.80 >55% Mitral Valve MV Pk E: 0.89 MV PK A: 0.54 MV Decel Time: 208.00 E/A: 1.70 E'Lateral: 17.30 E'Medial: 7.40 E/E' Med: 12.00 E/E' Lat: 5.20 PHT: 61.00 MVA PHT: 3.61 Decel [place]: 4.28 Aortic Valve AoV Pk [place]: 1.47 AoV Pk Grad: 9.00 KAILEY: 3.01 LVOT LVOT Pk D[place]: 1.31 LVOT Mn D[place]: 0.85 LVOT VTI: 0.20 LVOT Pk Grad: 7.00 LVOT Mn Grad: 3.00 LVOT Diam: 2.00 LVOT Area: 3.14 Diastolic Function MV Pk E: 0.89 MV Pk A: 0.54 E/A: 1.70 E'Medial: 7.40 E/E' Med: 12.00 E' Laterial: 17.30 E/E' Lat: 5.20 Right Ventricle TAPSE (mm): 38.20 TVS' Darrion: 18.00 Tricuspid Valve RA Press: 8.00 Great Vessels Aorta Sinus of Valsalva: 3.40 2.0-3.5 cm Ao Asc: 3.40 2.1-3.4 cm Ao Arch: 3.30 Ao Desc: 1.40 Pulmonary Valve PV Pk Darrion: 1.54 Peak PV Grad: 9.00 Updated in Other Vendor System with Status of Final Gabo Zhang MD electronically signed on 06/27/2024 10:52:48 AM with status of Final
[2024-06-27] MEDS: Gabapentin 300 MG CAPSULE 600 MG PO ×3 (08:53→21:19)
[2024-06-27] MEDS: buPROPion HCl XL 150 MG TAB.ER.24H PO ×2 (08:53→21:20)
[2024-06-27] MEDS: Nicotine 21 MG PATCH.TD24 TRANSDERMA (08:53)
[2024-06-27] MEDS: Divalproex Sodium 250 MG TABLET.DR 750 MG PO ×2 (08:53→21:19)
[2024-06-27] MEDS: Folic Acid 1 MG TABLET PO (08:53)
[2024-06-27] MEDS: methADONE HCl 20 MG/2 ML ORAL.CONC 55 MG PO (08:54)
--- NOTE | 2024-06-27 09:25 | HO.PM.IMPN ---
Subjective Subjective Date of Service: 06/27/24 Interval History: Improvement in dyspnea. Continues to have dizziness when standing up from a seated position. No chest pain Review of Systems All other systems are reviewed and are negative as noted above Review of Systems: Yes all other systems are reviewed and are negative Physical Exam Vital Signs: Vital Signs: Last Vital Signs Temp 97.6 F 06/27/24 08:00 Pulse 75 06/27/24 08:00 Resp 18 06/27/24 08:00 BP 120/63 06/27/24 08:00 Pulse Ox 96 06/27/24 08:00 O2 Del Method Room Air 06/27/24 08:00 BMI result Body Mass Index 29.8 Const: Other: Middle-aged male lying in bed in no distress Neck supple, no JVD Regular rate and rhythm, S1-S2 heard Regular breath sounds bilaterally, no wheezing or crackles appreciated Abdomen soft nontender, no guarding, no rigidity Patient is awake, alert and oriented to self, place, time and person ; no focal motor deficit Psych: Anxious No pedal edema Objective Data Active Medications Acetaminophen (Acetaminophen 325 Mg Tablet) 650 mg PO Q6H PRN PRN Reason: Pain, Mild 1-3,fever,headache Atorvastatin Calcium (Atorvastatin Calcium 20 Mg Tablet) 20 mg PO BEDTIME [facility] Last Admin: 06/26/24 20:29 Dose: 20 mg Documented By: SHERITA Bupropion HCl (Bupropion Hcl Xl 150 Mg Tab.Er.24h) 150 mg PO BID [facility] Last Admin: 06/27/24 08:53 Dose: 150 mg Documented By: GURDEEP Calcium Carbonate (Calcium Carbonate 750 Mg Tab.Chew) 750 mg PO Q4H PRN PRN Reason: Heartburn Divalproex Sodium (Divalproex Sodium 250 Mg Tablet.Dr) 750 mg PO BID [facility] Last Admin: 06/27/24 08:53 Dose: 750 mg Documented By: GURDEEP Folic Acid (Folic Acid 1 Mg Tablet) 1 mg PO DAILY [facility] Last Admin: 06/27/24 08:53 Dose: 1 mg Documented By: GURDEEP Gabapentin (Gabapentin 300 Mg Capsule) 600 mg PO TID [facility] Last Admin: 06/27/24 08:53 Dose: 600 mg Documented By: GURDEEP Heparin Sodium (Porcine) (Heparin Sodium,Porcine 5,000 Unit/Ml Vial) 4,000 unit 40 unit/kg (4000 unit) IVPUSH PROTOCOL BOLUS PRN; Protocol PRN Reason: 40 unit/kg - Heparin Protocol Heparin Sodium (Porcine) (Heparin Sodium,Porcine 5,000 Unit/Ml Vial) 8,000 unit 80 unit/kg (8000 unit) IVPUSH PROTOCOL BOLUS PRN; Protocol PRN Reason: 80 unit/kg - Heparin Protocol Heparin Sodium/Sodium Chloride (Heparin Sodium,Porcine/1/2ns) 25,000 unit in 250 mls @ 0 mls/hr IVCONT .Q0M [place]; Protocol Last Titration: 06/27/24 05:23 Dose: 14 units/kg/hr, 13.97 mls/hr Documented By: SHERITA Co-signed By: MAITE Lorazepam (Lorazepam 1 Mg Tablet) 1 mg PO ONCE ONE Stop: 06/27/24 09:21 Magnesium Hydroxide (Milk Of Magnesia 30 Ml Oral.Susp) 30 ml PO DAILY PRN PRN Reason: Constipation Melatonin (Melatonin 3 Mg Tablet) 6 mg PO BEDTIME PRN PRN Reason: Insomnia Methadone HCl (Methadone Hcl 20 Mg/2 Ml Oral.Conc) 55 mg PO DAILY [facility] Last Admin: 06/27/24 08:54 Dose: 55 mg Documented By: GURDEEP Co-signed By: MARTHA Mirtazapine (Mirtazapine 7.5 Mg Tablet) 7.5 mg PO BEDTIME [facility] Last Admin: 06/26/24 20:29 Dose: 7.5 mg Documented By: SHERITA Nicotine (Nicotine 21 Mg Patch.Td24) 21 mg TRANSDERMA DAILY [facility] Last Admin: 06/27/24 08:53 Dose: 21 mg Documented By: GURDEEP Nicotine Polacrilex (Nicotine Polacrilex Lozenge 2 Mg Lozenge) 2 mg BUCCAL Q2H PRN PRN Reason: Nicotine Cravings Last Admin: 06/27/24 08:56 Dose: 2 mg Documented By: GURDEEP Olanzapine (Olanzapine 5 Mg Tablet) 5 mg PO BEDTIME [facility] Last Admin: 06/26/24 20:29 Dose: 5 mg Documented By: SHERITA Ondansetron HCl (Ondansetron Hcl 4 Mg/2 Ml Vial) 4 mg IVPUSH Q8H PRN PRN Reason: Nausea and Vomiting Sodium Chloride (0.9 % Sodium Chloride Flush 3 Ml Syringe) 3 ml IVFLUSH QSHIFT [facility] Last Admin: 06/26/24 20:30 Dose: 3 ml Documented By: SHERITA Labs 06/27/24 05:42 06/27/24 05:42 Labs: Laboratory Results - last 24 hr 06/26/24 06/26/24 06/26/24 05:46 09:09 11:30 MCV MCH MCHC RDW Plt Count MPV Immature Gran % (Auto) Neut % (Auto) Lymph % (Auto) [place] % (Auto) Eos % (Auto) Baso % (Auto) Lymph # (Auto) [place] # (Auto) Eos # (Auto) Baso # (Auto) Abs Immat Gran (auto) Absolute Neuts (auto) Absolute Nucleated RBC Nucleated RBC % (auto) Hold Purple Top PT INR APTT aPTT Heparin Protocol D-Dimer High Sensitivty Anion Gap Estim Creat Clear Calc Estimated GFR Random Glucose Lactic Acid F/U @ 2Hr 2.7 H* Lactic Acid F/U @ 4Hr 2.4 H* Calcium Ethyl Alcohol < 10 06/26/24 06/26/24 06/27/24 14:28 21:49 04:10 MCV 88.9 MCH 29.2 MCHC 32.9 RDW 14.0 Plt Count 231 MPV 9.3 L Immature Gran % (Auto) Neut % (Auto) Lymph % (Auto) [place] % (Auto) Eos % (Auto) Baso % (Auto) Lymph # (Auto) [place] # (Auto) Eos # (Auto) Baso # (Auto) Abs Immat Gran (auto) Absolute Neuts (auto) Absolute Nucleated RBC 0.000 Nucleated RBC % (auto) 0.0 Hold Purple Top SEE NOTE PT 10.8 L INR 0.9 APTT 32.2 aPTT Heparin Protocol Cancelled 66.7 57.9 D-Dimer High Sensitivty < 150 Anion Gap Estim Creat Clear Calc Estimated GFR Random Glucose Lactic Acid F/U @ 2Hr Lactic Acid F/U @ 4Hr Calcium Ethyl Alcohol 06/27/24 05:42 MCV 89.5 MCH 28.5 MCHC 31.8 RDW 14.1 Plt Count 253 MPV 9.8 Immature Gran % (Auto) 0.2 Neut % (Auto) 37.4 L Lymph % (Auto) 49.8 H [place] % (Auto) 8.1 Eos % (Auto) 3.3 Baso % (Auto) 1.2 Lymph # (Auto) 2.8 [place] # (Auto) 0.5 Eos # (Auto) 0.2 Baso # (Auto) 0.1 Abs Immat Gran (auto) 0.01 Absolute Neuts (auto) 2.1 Absolute Nucleated RBC 0.000 Nucleated RBC % (auto) 0.0 Hold Purple Top PT INR APTT aPTT Heparin Protocol 52.7 L D-Dimer High Sensitivty Anion Gap 15 Estim Creat Clear Calc 134.5 Estimated GFR > 60 Random Glucose 130 H Lactic Acid F/U @ 2Hr Lactic Acid F/U @ 4Hr Calcium 9.3 D Ethyl Alcohol Microbiology Microbiology Results: Microbiology 06/26/24 05:57 Blood Culture - Preliminary Blood - Venous No growth after 24 hours. 06/26/24 05:46 Blood Culture - Preliminary Blood - Venous No growth after 24 hours. Assessment and Plan (1) Pulmonary embolism: Status: Acute (2) Near syncope: Status: Acute Plan 49-year-old male with history of hyperlipidemia, mood disorder, IV drug abuse in remission on methadone admitted for further management of pulmonary embolism and near syncope #. Acute non massive PE: -transitioned IV heparin to p.o. Eliquis. Hematology consulted>> will need long-term anticoagulation due to spontaneous VTE. No thrombophilia workup indicated #. Orthostatic presyncope: -continues to be symptomatic. Will order additional IV crystalloid bolus and repeat orthostatics #. Hypotension and lactic acidosis due to poor perfusion from hypotension in the setting of intravascular volume depletion. No sepsis #. Mood disorder with HI -continue bupropion, divalproex, mirtazapine and olanzapine -sitter consulted. Care team eval once medically cleared #. Alcohol use disorder -initiated thiamine. No withdrawal #. Mixed hyperlipidemia -on statin #. Opioid use disorder -on methadone #. Tobacco use disorder -nicotine patch while in the hospital DVT prophylaxis: Eliquis Full code Reason for continued hospitalization: Ongoing symptoms of orthostatic presyncope. Quality Stroke Does the patient have a stroke diagnosis?: No VTE Prior VTE?: No VTE Risk Level:: Medical - moderate - high VTE Device Contraindication: Treatment Not Indicated VTE Drug Contraindication: N/A - Med Ordered
[2024-06-27] MEDS: 0.9 % Sodium Chloride Flush 3 ML SYRINGE IVFLUSH ×2 (09:54→21:21)
[2024-06-27] MEDS: LORazepam 1 MG TABLET PO ×3 (09:54→21:52)
[2024-06-27] MEDS: Apixaban 5 MG TABLET 10 MG PO ×2 (09:54→21:20)
[2024-06-27] MEDS: Thiamine HCL 100 MG TABLET PO (09:54)
[2024-06-27] MEDS: ondansetron HCL 4 MG/2 ML VIAL IVPUSH (09:56)
[2024-06-27] MEDS: Lactated Ringers 1,000 ML 999 ML IV (09:57)
--- NOTE | 2024-06-27 11:32 | MHC.CM.PN ---
IMM 06/27. Pt was at [facility] prior to this hospitalization, prior to being at [facility] pt reports homelessness, some time in long-term, and some time at a sober house in [place]. Pt states he is independent with his care, however he is having mental health issues and states it is hard for him to make decisions. Pt will need assistance with transportation at discharge. Discharge plan unclear at this time, he may return to [facility], vs possible inpatient psych stay. Education proved on HCP, pt declines at this time, stating he will think about it. This CM received a call from pts community leasing property manager Ayla (from [facility]), she states that she has been following the pt and that we may call her if we need assistance with discharge plans, she can be reached at [phone]. Pt does not have a PCP, he states he doesn't know where he will end up so he can't establish one at this time.
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
[2024-06-27] MEDS: Atorvastatin Calcium 20 MG TABLET PO (21:20)
[2024-06-27] MEDS: OLANZapine 5 MG TABLET PO (21:21)
[2024-06-27] MEDS: Mirtazapine 7.5 MG TABLET PO (21:21)
[2024-06-28] MEDS: Nicotine Polacrilex Lozenge 2 MG LOZENGE BUCCAL ×6 (00:32→20:46)
[2024-06-28 03:19] VITALS: BP 130/69; PULSE 78; RESP 18; TEMP 37.2; O2SAT 94
[2024-06-28 07:53] VITALS: BP 119/67; PULSE 78; RESP 19; TEMP 36.6; O2SAT 96
[2024-06-28] MEDS: methADONE HCl 20 MG/2 ML ORAL.CONC 65 MG PO (08:08)
[2024-06-28] MEDS: Gabapentin 300 MG CAPSULE 600 MG PO ×3 (08:10→20:45)
[2024-06-28] MEDS: Nicotine 21 MG PATCH.TD24 TRANSDERMA (08:10)
[2024-06-28] MEDS: buPROPion HCl XL 150 MG TAB.ER.24H PO ×2 (08:11→15:41)
[2024-06-28] MEDS: Folic Acid 1 MG TABLET PO (08:12)
[2024-06-28] MEDS: Apixaban 5 MG TABLET 10 MG PO ×2 (08:12→20:44)
[2024-06-28] MEDS: Divalproex Sodium 250 MG TABLET.DR 750 MG PO ×2 (08:12→20:45)
[2024-06-28] MEDS: Thiamine HCL 100 MG TABLET PO (08:12)
[2024-06-28] MEDS: 0.9 % Sodium Chloride Flush 3 ML SYRINGE IVFLUSH ×2 (08:20→15:43)
--- NOTE | 2024-06-28 09:30 | PC.NURSE ---
patient requested pain medication, ordjessenia zyprexa 2.5 prn q4 patient refused zprexa prn dose wanting something different
--- NOTE | 2024-06-28 09:53 | P.CDIM_ITS ---
PROVIDER RESPONSE TEXT: To clarify, the appropriate diagnosis supported by the clinical indicators: Multiple subsegmental pulmonary emboli without cor pulmonale QUERY TEXT: PHYSICIAN'S DOCUMENTATION REQUEST Date of Query: 06/28/2024 07:46 AM EDT Patient Name: José Luis Adames Admit Date: 06/26/2024 Dear Sonu Sotomayor MD, A review of the medical record indicates additional documentation may be needed. Please review below and update the documentation accordingly. Clinical Indicators: CT scan 06/26 - There is intraluminal filling defects within the subsegmental pulmonary branches to th e left lower lung lobe. Impression - Acute pulmonary artery emboli, subsegmental pulmonary branches to the left lower lung lo be. Hematology consult note 06/26 - CT shows subsegmental pulmonary emboli LL lung. Progress note 06/27 -Acute non massive PE: transitioned IV heparin to p.o. Eliquis. Will need custodial anticoagulation due to spontaneous VTE. Based on the above, could you clarify further specifics to the noted pulmonary emboli: Single subsegmental pulmonary emboli, without cor pulmonale possible, probable, suspected etc. Multiple subsegmental pulmonary emboli without cor pulmonale Other specifics to the noted pulmonary emboli Other (explain) Clinically unable to determine (explain) Thank you, Mary Griffith, CCS, CDIS Use of terms such as suspected, likely, concern for, or probable (associated with a specific diagnosi s that is being evaluated, monitored, or treated as if it exists) are acceptable and can be coded in the inpatient se tting, when documented at the time of discharge. Please use your independent medical judgment in providing your response. THIS QUERY IS PART OF THE PERMANENT MEDICAL RECORD
[2024-06-28] MEDS: LORazepam 1 MG TABLET PO ×2 (10:20→20:44)
--- NOTE | 2024-06-28 10:41 | MHC.CM.PN ---
Per ROUNDS discussion, Patient will be evaluated by PT and the Care Team today to assist with disposition. CM will follow.
--- NOTE | 2024-06-28 10:59 | P.PNIM_ITS ---
Subjective Subjective Date of Service: 06/28/24 Interval History: Improvement in dyspnea. No longer has dizziness when standing up from a seated position. No chest pain Review of Systems All other systems are reviewed and are negative as noted above. Physical Exam 2 Vital Signs: Vital Signs: Last Vital Signs Temp 97.8 F 06/28/24 07:53 Pulse 78 06/28/24 07:53 Resp 19 06/28/24 07:53 BP 119/67 06/28/24 07:53 Pulse Ox 96 06/28/24 07:53 O2 Del Method Room Air 06/28/24 07:53 BMI result Body Mass Index 29.8 Const: Other: Middle-aged male lying in bed in no distress Neck supple, no JVD Regular rate and rhythm, S1-S2 heard Regular breath sounds bilaterally, no wheezing or crackles appreciated Abdomen soft nontender, no guarding, no rigidity Patient is awake, alert and oriented to self, place, time and person ; no focal motor deficit Psych: Anxious No pedal edema. Objective Data Active Medications Acetaminophen (Acetaminophen 325 Mg Tablet) 650 mg PO Q6H PRN PRN Reason: Pain, Mild 1-3,fever,headache Apixaban (Apixaban 5 Mg Tablet) 10 mg PO BID [facility] Stop: 07/03/24 21:01 Last Admin: 06/28/24 08:12 Dose: 10 mg Documented By: ANGELA Atorvastatin Calcium (Atorvastatin Calcium 20 Mg Tablet) 20 mg PO BEDTIME [facility] Last Admin: 06/27/24 21:20 Dose: 20 mg Documented By: MITA Bupropion HCl (Bupropion Hcl Xl 150 Mg Tab.Er.24h) 150 mg PO BID [facility] Last Admin: 06/28/24 08:11 Dose: 150 mg Documented By: ANGELA Calcium Carbonate (Calcium Carbonate 750 Mg Tab.Chew) 750 mg PO Q4H PRN PRN Reason: Heartburn Divalproex Sodium (Divalproex Sodium 250 Mg Tablet.) 750 mg PO BID [facility] Last Admin: 06/28/24 08:12 Dose: 750 mg Documented By: ANGELA Folic Acid (Folic Acid 1 Mg Tablet) 1 mg PO DAILY [facility] Last Admin: 06/28/24 08:12 Dose: 1 mg Documented By: ANGELA Gabapentin (Gabapentin 300 Mg Capsule) 600 mg PO TID [facility] Last Admin: 06/28/24 08:10 Dose: 600 mg Documented By: ANGELA Magnesium Hydroxide (Milk Of Magnesia 30 Ml Oral.Susp) 30 ml PO DAILY PRN PRN Reason: Constipation Melatonin (Melatonin 3 Mg Tablet) 6 mg PO BEDTIME PRN PRN Reason: Insomnia Methadone HCl (Methadone Hcl 20 Mg/2 Ml Oral.Conc) 65 mg PO DAILY@0800 [facility] Last Admin: 06/28/24 08:08 Dose: 65 mg Documented By: ANGELA Co-signed By: CHARISSE Mirtazapine (Mirtazapine 7.5 Mg Tablet) 7.5 mg PO BEDTIME [facility] Last Admin: 06/27/24 21:21 Dose: 7.5 mg Documented By: MITA Nicotine (Nicotine 21 Mg Patch.Td24) 21 mg TRANSDERMA DAILY [facility] Last Admin: 06/28/24 08:10 Dose: 21 mg Documented By: ANGELA Nicotine Polacrilex (Nicotine Polacrilex Lozenge 2 Mg Lozenge) 2 mg BUCCAL Q2H PRN PRN Reason: Nicotine Cravings Last Admin: 06/28/24 08:12 Dose: 2 mg Documented By: ANGELA Olanzapine (Olanzapine 5 Mg Tablet) 5 mg PO BEDTIME [facility] Last Admin: 06/27/24 21:21 Dose: 5 mg Documented By: MITA Olanzapine (Olanzapine 2.5 Mg Tablet) 2.5 mg PO Q4H PRN PRN Reason: anxiety/restlessness Ondansetron HCl (Ondansetron Hcl 4 Mg/2 Ml Vial) 4 mg IVPUSH Q8H PRN PRN Reason: Nausea and Vomiting Last Admin: 06/27/24 09:56 Dose: 4 mg Documented By: GURDEEP Sodium Chloride (0.9 % Sodium Chloride Flush 3 Ml Syringe) 3 ml IVFLUSH QSHIFT [facility] Last Admin: 06/28/24 08:20 Dose: 3 ml Documented By: ANGELA Thiamine HCl (Thiamine Hcl 100 Mg Tablet) 100 mg PO DAILY [facility] Last Admin: 06/28/24 08:12 Dose: 100 mg Documented By: ANGELA Labs 06/27/24 05:42 06/27/24 05:42 Labs: Laboratory Results - last 24 hr 06/27/24 13:02 aPTT Heparin Protocol 36.0 L D Microbiology Microbiology Results: Microbiology 06/26/24 05:57 Blood Culture - Preliminary Blood - Venous No growth after 48 hours. 06/26/24 05:46 Blood Culture - Preliminary Blood - Venous No growth after 48 hours. Assessment and Plan (1) Pulmonary embolism: Status: Acute Plan 49-year-old male with history of hyperlipidemia, mood disorder, IV drug abuse in remission on methadone admitted for further management of pulmonary embolism and near syncope #. Acute non massive PE: -transitioned IV heparin to p.o. Eliquis. Hematology consulted>> will need long-term anticoagulation due to spontaneous VTE. No thrombophilia workup indicated #. Orthostatic presyncope: -resolved with IV crystalloid resuscitation #. Hypotension and lactic acidosis due to poor perfusion from hypotension in the setting of intravascular volume depletion. No sepsis #. Mood disorder with HI -continue bupropion, divalproex, mirtazapine and olanzapine. Has ongoing anxiety wanting benzos, refusing olanzapine prn -sitter consulted. Care team eval placed #. Alcohol use disorder -initiated thiamine. No withdrawal #. Mixed hyperlipidemia -on statin #. Opioid use disorder -on methadone #. Tobacco use disorder -nicotine patch while in the hospital #. Debility and weakness -PT eval DVT prophylaxis: Chan Full code Reason for continued hospitalization: CARE team and PT eval Quality Stroke Does the patient have a stroke diagnosis?: No VTE Prior VTE?: No VTE Risk Level:: Medical - moderate - high VTE Device Contraindication: Treatment Not Indicated VTE Drug Contraindication: N/A - Med Ordered
[2024-06-28 11:27] VITALS: BP 119/67; PULSE 78; O2SAT 96
[2024-06-28 12:00] VITALS: BP 123/88; PULSE 88; RESP 20; TEMP 37.4; O2SAT 96
--- NOTE | 2024-06-28 12:19 | MHC.CARE ---
Pt meets the criteria for IPLOC and is on a Section 12a. Provider in agreement.
[2024-06-28 12:42] LABS: PTT Heparin Drip 37.4 SEC (53-77.9)
--- NOTE | 2024-06-28 14:03 | HO.ADDICTPRO ---
Subjective Subjective Date of Service: 06/28/24 Reason For Visit: bilateral PE Interim History: Patient seen in follow up for methadone dose titration This morning patient received methadone 65mg Patient awake, alert, sitting on the edge of his bed. When asked about methadone dose, he stated he would not be able to tell until tomorrow morning when he has had the dose for a whole day. Patient reporting anxiety and stating that lorazepam is what is helpful. He declined 2.5mg PRN Olanzapine offered to him earlier stating it does not help him, and only makes him tired. When asked if he was prescribed benzodiazepines outpatient, he replied no, but had been receiving them in every facility except for when he was incarcerated. While he is appropriate in his communication, he was reporting that he was starting to feel like I am starting come to a boil and like there is a cover on top of me . Review of Systems Constitutional: Reports as per HPI Mental Status Exam Mental Status Exam Patient Appearance: Appropriate Level of Consciousness: Awake Patient Behavior: Restless (agitated) Mood Description: Anxious Speech Pattern: Clear Thought Process: Intact Thought Content: positive for Circumstantial and positive for Perseveration Diagnostics Vital Signs (24Hr): Vital Signs - 24 hr 06/27/24 16:18 06/27/24 18:00 06/27/24 18:10 Temperature 98.1 F Pulse Rate 84 82 87 Respiratory Rate 18 Blood Pressure 128/75 118/69 127/83 Pulse Oximetry 94 Oxygen Delivery Method Room Air 06/27/24 18:10 06/27/24 19:42 06/27/24 23:27 Temperature 98.0 F 98.7 F Pulse Rate 91 86 87 Respiratory Rate 20 18 Blood Pressure 129/79 134/69 129/68 Pulse Oximetry 93 95 Oxygen Delivery Method Room Air Room Air 06/28/24 03:19 06/28/24 07:53 06/28/24 11:27 Temperature 98.9 F 97.8 F Pulse Rate 78 78 78 Respiratory Rate 18 19 Blood Pressure 130/69 119/67 119/67 Pulse Oximetry 94 96 96 Oxygen Delivery Method Room Air Room Air 06/28/24 12:00 Temperature 99.4 F Pulse Rate 88 Respiratory Rate 20 Blood Pressure 123/88 Pulse Oximetry 96 Oxygen Delivery Method Room Air BMI result Body Mass Index 29.8 Labs 06/27/24 05:42 06/27/24 05:42 Labs: Laboratory Results - last 48 hr 06/26/24 06/26/24 06/27/24 14:28 21:49 04:10 WBC 4.7 L RBC 3.97 L Hgb 11.6 L Hct 35.3 L MCV 88.9 MCH 29.2 MCHC 32.9 RDW 14.0 Plt Count 231 MPV 9.3 L Immature Gran % (Auto) Neut % (Auto) Lymph % (Auto) [place] % (Auto) Eos % (Auto) Baso % (Auto) Lymph # (Auto) [place] # (Auto) Eos # (Auto) Baso # (Auto) Abs Immat Gran (auto) Absolute Neuts (auto) Absolute Nucleated RBC 0.000 Nucleated RBC % (auto) 0.0 Hold Purple Top SEE NOTE PT 10.8 L INR 0.9 APTT 32.2 aPTT Heparin Protocol Cancelled 66.7 57.9 D-Dimer High Sensitivty < 150 Sodium Potassium Chloride Carbon Dioxide Anion Gap BUN Creatinine Estim Creat Clear Calc Estimated GFR Random Glucose Calcium 06/27/24 06/27/24 06/28/24 05:42 13:02 12:22 WBC 5.7 RBC 4.21 L Hgb 12.0 L Hct 37.7 L MCV 89.5 MCH 28.5 MCHC 31.8 RDW 14.1 Plt Count 253 MPV 9.8 Immature Gran % (Auto) 0.2 Neut % (Auto) 37.4 L Lymph % (Auto) 49.8 H [place] % (Auto) 8.1 Eos % (Auto) 3.3 Baso % (Auto) 1.2 Lymph # (Auto) 2.8 [place] # (Auto) 0.5 Eos # (Auto) 0.2 Baso # (Auto) 0.1 Abs Immat Gran (auto) 0.01 Absolute Neuts (auto) 2.1 Absolute Nucleated RBC 0.000 Nucleated RBC % (auto) 0.0 Hold Purple Top PT INR APTT aPTT Heparin Protocol 52.7 L 36.0 L D 37.4 L D-Dimer High Sensitivty Sodium 140 Potassium 4.5 Chloride 103 Carbon Dioxide 27 Anion Gap 15 BUN 17 H Creatinine 0.83 Estim Creat Clear Calc 134.5 Estimated GFR > 60 Random Glucose 130 H Calcium 9.3 D Imaging Radiology Impressions: ITS Impressions Chest CTA 06/26/24 12:52 IMPRESSION: Acute pulmonary artery emboli, subsegmental pulmonary branches to the left lower lung lobe. Acute versus chronic airway disease, lung bases lingula and right middle lobe. Findings communicated to the requesting physician Dr. Tato Goff in the emergency department at 1:39 PM on June 26, 2024. Fleischner guidelines were followed. Electronically signed by: Dariel Romero MD 06/26/2024 01:43 PM EDT Medications Medications Current Medications Acetaminophen (Acetaminophen 325 Mg Tablet) 650 mg PO Q6H PRN PRN Reason: Pain, Mild 1-3,fever,headache Apixaban (Apixaban 5 Mg Tablet) 10 mg PO BID [facility] Stop: 07/03/24 21:01 Last Admin: 06/28/24 08:12 Dose: 10 mg Atorvastatin Calcium (Atorvastatin Calcium 20 Mg Tablet) 20 mg PO BEDTIME [facility] Last Admin: 06/27/24 21:20 Dose: 20 mg Bupropion HCl (Bupropion Hcl Xl 150 Mg Tab.Er.24h) 150 mg PO BID [facility] Last Admin: 06/28/24 08:11 Dose: 150 mg Calcium Carbonate (Calcium Carbonate 750 Mg Tab.Chew) 750 mg PO Q4H PRN PRN Reason: Heartburn Divalproex Sodium (Divalproex Sodium 250 Mg Tablet.Dr) 750 mg PO BID [facility] Last Admin: 06/28/24 08:12 Dose: 750 mg Folic Acid (Folic Acid 1 Mg Tablet) 1 mg PO DAILY [facility] Last Admin: 06/28/24 08:12 Dose: 1 mg Gabapentin (Gabapentin 300 Mg Capsule) 600 mg PO TID [facility] Last Admin: 06/28/24 08:10 Dose: 600 mg Magnesium Hydroxide (Milk Of Magnesia 30 Ml Oral.Susp) 30 ml PO DAILY PRN PRN Reason: Constipation Melatonin (Melatonin 3 Mg Tablet) 6 mg PO BEDTIME PRN PRN Reason: Insomnia Methadone HCl (Methadone Hcl 20 Mg/2 Ml Oral.Conc) 65 mg PO DAILY@0800 [facility] Last Admin: 06/28/24 08:08 Dose: 65 mg Mirtazapine (Mirtazapine 7.5 Mg Tablet) 7.5 mg PO BEDTIME [facility] Last Admin: 06/27/24 21:21 Dose: 7.5 mg Nicotine (Nicotine 21 Mg Patch.Td24) 21 mg TRANSDERMA DAILY [facility] Last Admin: 06/28/24 08:10 Dose: 21 mg Nicotine Polacrilex (Nicotine Polacrilex Lozenge 2 Mg Lozenge) 2 mg BUCCAL Q2H PRN PRN Reason: Nicotine Cravings Last Admin: 06/28/24 13:14 Dose: 2 mg Olanzapine (Olanzapine 5 Mg Tablet) 5 mg PO BEDTIME [facility] Last Admin: 06/27/24 21:21 Dose: 5 mg Olanzapine (Olanzapine 2.5 Mg Tablet) 2.5 mg PO Q4H PRN PRN Reason: anxiety/restlessness Ondansetron HCl (Ondansetron Hcl 4 Mg/2 Ml Vial) 4 mg IVPUSH Q8H PRN PRN Reason: Nausea and Vomiting Last Admin: 06/27/24 09:56 Dose: 4 mg Sodium Chloride (0.9 % Sodium Chloride Flush 3 Ml Syringe) 3 ml IVFLUSH QSHIFT [facility] Last Admin: 06/28/24 08:20 Dose: 3 ml Thiamine HCl (Thiamine Hcl 100 Mg Tablet) 100 mg PO DAILY [facility] Last Admin: 06/28/24 08:12 Dose: 100 mg Allergies Allergies Allergy/AdvReac Type Severity Reaction Status Date / Time ketamine AdvReac Unknown Verified 06/26/24 05:28 prazosin AdvReac Unknown Verified 06/26/24 05:28 Assessment & Plan Assessment & Plan (1) Opioid use disorder: Status: Acute Code(s): F11.90 - Opioid use, unspecified, uncomplicated Assessment and Plan: continue methadone at current dose, can titrate dose an additional 10mg if patient wishes tomorrow morning notified attending provider regarding patients agitation and possible escalating behavior --inquired about psych consult as patient had transferred from in psych unit. Per hospitalist, patient was already seen and will be going inpatient psych. Total time managing care of this patient today ___20_ minutes.
[2024-06-28 15:52] VITALS: BP 112/76; PULSE 90; RESP 18; TEMP 37.2; O2SAT 95
--- NOTE | 2024-06-28 17:10 | PC.NURSE ---
patient has been asking avaiable staff for anxiety medication throughout the day
[2024-06-28 19:57] VITALS: BP 113/62; PULSE 88; RESP 18; TEMP 37.1; O2SAT 93
[2024-06-28] MEDS: Atorvastatin Calcium 20 MG TABLET PO (20:45)
[2024-06-28] MEDS: Mirtazapine 7.5 MG TABLET PO (20:46)
[2024-06-29] VITALS: BP 131/62; PULSE 80; RESP 18; TEMP 36.6; O2SAT 96
[2024-06-29] MEDS: Melatonin 3 MG TABLET 6 MG PO (00:41)
[2024-06-29] MEDS: Nicotine Polacrilex Lozenge 2 MG LOZENGE BUCCAL ×4 (00:41→12:58)
[2024-06-29 03:35] VITALS: BP 120/72; PULSE 86; RESP 18; TEMP 36.4; O2SAT 100
[2024-06-29 07:14] VITALS: BP 90/59; PULSE 78; RESP 12; TEMP 36.8; O2SAT 96
[2024-06-29] MEDS: Apixaban 5 MG TABLET 10 MG PO (08:15)
[2024-06-29] MEDS: Divalproex Sodium 250 MG TABLET.DR 750 MG PO (08:15)
[2024-06-29] MEDS: Folic Acid 1 MG TABLET PO (08:15)
[2024-06-29] MEDS: Thiamine HCL 100 MG TABLET PO (08:15)
[2024-06-29] MEDS: Nicotine 21 MG PATCH.TD24 TRANSDERMA (08:16)
[2024-06-29] MEDS: Gabapentin 300 MG CAPSULE 600 MG PO (08:16)
[2024-06-29] MEDS: buPROPion HCl XL 150 MG TAB.ER.24H PO (08:16)
[2024-06-29] MEDS: 0.9 % Sodium Chloride Flush 3 ML SYRINGE IVFLUSH (08:16)
[2024-06-29] MEDS: methADONE HCl 20 MG/2 ML ORAL.CONC 65 MG PO (08:17)
--- NOTE | 2024-06-29 10:23 | MHC.CM.PN ---
Per ROUNDS discussion, Patient is medically cleared for dc to [facility] pending Care Team securing a bed. CM will follow.
[2024-06-29 10:28] LABS: HBS Num1 779.13 mIU/mL (0-7.99); HBc Num1 8.39 S/CO (0.00-0.79); HBsAGNum1 0.26 S/CO (0.00-0.99); HIV AB/AG Nonreactive (Nonreactive); HIV Num 1 0.06 S/CO (0.00-0.99); Hepatitis B Surface Antigen Negative (Negative); ~HepC Num1 14.99 S/CO (0.00-0.79); ~Hepatitis B Surface Antibody REACTIVE (Nonreactive); ~Hepatitis C Antibody Reactive (Nonreactive)
[2024-06-29] MEDS: LORazepam 1 MG TABLET PO (11:04)
[2024-06-29 11:32] VITALS: BP 131/81; PULSE 90; RESP 14; TEMP 37.2; O2SAT 92
[2024-06-29 12:00] LABS: HBc Num2 8.09 S/CO; HBc Num3 8.17 S/CO
[2024-06-29 12:01] LABS: Hepatitis B Core Antibody Reactive (Nonreactive)
--- NOTE | 2024-06-29 12:11 | P.DS_ITS ---
DS: Providers Provider Date of Service: 06/29/24 Date of admission: 06/26/24 14:10 Date of discharge: 06/29/24 Primary care physician: Unknown Physician Consults: 06/26/24 14:12 Consult for Sitter Routine Reason for consultation: HI 06/26/24 14:24 Consult to Hematology / Oncology Routine Consulting Provider[place] [facility] [place] Reason for consultation: PE, hx RUE DVt 06/27/24 07:41 Addiction Medicine Provider Routine Consulting Provider: Addiction Covering Reason for consultation: fenatyl use disorder 06/28/24 11:02 In CARE Team Crisis Consult Routine Comment: Reason for consultation: HI, ongoing anxiety DS: Diagnosis Discharge Diagnosis (1) Opioid use disorder: Status: Acute (2) Pulmonary embolism: Status: Acute (3) Near syncope: Status: Acute (4) Mood disorder: Status: Acute (5) Orthostatic hypotension: Status: Acute DS: Summary Hospital Course Hospital Course: From the history and physical by the admitting hospitalist, JOSEPH Lee, 06/26/24: 49-year-old male with history of hyperlipidemia, mood disorder, IV drug abuse in remission on methadone presented to the ED from [facility] where he was being treated for alcohol w/d and HI. Patient reports he developed lightheadedness and shortness of breath both at rest and with exertion last night which persisted until this morning. He was reported to be hypotensive with systolic blood pressure in the 70s. He states he did a GI illness about 10 days ago but has fully resolved and he has been eating and drinking without difficulty. He denies any headache, visual changes, cough, nausea, vomiting, diarrhea, urinary symptoms, palpitations, or chest pain. He reports that while ambulating in the ED, he has had some shortness of breath with exertion but lightheadedness has not recurred. He states he also feels generally weak. He reports his last IV drug abuse was about 9 months ago and has been stable on his dose of methadone since February. He does report history of clot in the right upper extremity for which he was admitted for anticoagulation and took blood thinners at home for an unknown period of time. He states this was years ago. Denies any known history of clotting disorder. Unsure of family history. Denies any recent travel. He has been treated for alcohol withdrawal with discontinuation of Valium and Ativan 06/23. Denies any going symptoms of withdrawal. On arrival to the ED patient was hypotensive to 85/42 with improvement to 127/74 following IV fluid resuscitation which did also improve his lightheadedness. Hematology studies significant for mild leukopenia of 4.6 and a normocytic anemia with H/H 11.7/36.0%. Renal function within normal limits, electrolyte levels normal. Initial lactic acid 3.6 with repeats of 2.7 and 2.4. Hepatic function within limits. Troponin undetectable x2. BNP undetectable. Urinalysis unremarkable. Negative for influenza, COVID-19, RSV urine drug screen positive for fentanyl and methadone. EKG shows NSR without any ST or depressions. CXR unremarkable. Chest CTA acute subsegmental pulmonary emboli branching to the left lower lung lobe. Patient will be admitted for further management of acute pulmonary embolism. 49-year-old male with history of hyperlipidemia, mood disorder, IV drug abuse in remission on methadone admitted for further management of pulmonary embolism and near-syncope. Hospital course by problem: # acute non-massive pulmonary embolism - started on IV heparin drip then changed to PO apixaban. Not hypoxic. TTE showed: The left ventricular systolic function is normal. The calculated ejection fraction is 66% by biplane method. Diastolic function is normal for age. No obvious valvular pathology seen on this study. Hematology consulted and recommended long-term anticoagulation due to spontaneous VTE. No thrombophilia workup indicated. On 07/04, apixaban dose should be reduced from 10 to 5 mg bid. He needs to establish primary care as soon as possible. # orthostatic presyncope - resolved with IV crystalloid resuscitation - hypotension and lactic acidosis due to poor perfusion from hypotension in the setting of intravascular volume depletion; not septic # mood disorder with homicidal ideation - continued bupropion, divalproex, mirtazapine and olanzapine; sitter placed. Transferred to inpatient psychiatry for further care. # alcohol use disorder - initiated thiamine. No withdrawal syndrome. # opioid use disorder - on methadone; dose titrated by Addiction Medicine. Time Attestation Discharge Coordination Time (in mins): 45 Quality: Safe Use of Opioids Does Pt have an Active Cancer Diagnosis on the Problem List?: No Quality: Stroke Does the patient have a stroke diagnosis?: No Physical Exam Vital Signs: Vital Signs: Last Vital Signs Temp 98.9 F 06/29/24 11:32 Pulse 90 06/29/24 11:32 Resp 14 06/29/24 11:32 BP 131/81 06/29/24 11:32 Pulse Ox 92 06/29/24 11:32 O2 Del Method Room Air 06/29/24 11:32 BMI result Body Mass Index 29.8 Gen: in no acute distress HEENT: sclera anicteric, moist mucus membranes Neck: supple Lungs: clear to auscultation bilaterally Heart: regular rate and rhythm, no murmurs Abd: soft, non-tender, non-distended Ext: no edema Skin: warm/well-perfused Neuro: alert and oriented x3, no focal findings Psych: restricted affect DS: Data Data Completed and Pending Completed studies during hospitalization [Text1]: Laboratory Results WBC 5.7 X10*3/uL (4.8-10.8) 06/27/24 05:42 RBC 4.21 X10*6/uL (4.60-5.80) L 06/27/24 05:42 Hgb 12.0 g/dl (14.0-18.0) L 06/27/24 05:42 Hct 37.7 % (42.0-52.0) L 06/27/24 05:42 MCV 89.5 fL (80.0-98.0) 06/27/24 05:42 MCH 28.5 pg (27.0-33.0) 06/27/24 05:42 MCHC 31.8 g/dl (31.0-36.0) 06/27/24 05:42 RDW 14.1 % (11.0-16.0) 06/27/24 05:42 Plt Count 253 X10*3/uL (160-400) 06/27/24 05:42 MPV 9.8 fL (9.4-12.4) 06/27/24 05:42 Immature Gran % (Auto) 0.2 % (0.0-0.4) 06/27/24 05:42 Neut % (Auto) 37.4 % (45-73) L 06/27/24 05:42 Lymph % (Auto) 49.8 % (20-40) H 06/27/24 05:42 [place] % (Auto) 8.1 % (2-11) 06/27/24 05:42 Eos % (Auto) 3.3 % (0-4) 06/27/24 05:42 Baso % (Auto) 1.2 % (0-2) 06/27/24 05:42 Lymph # (Auto) 2.8 X10*3/uL (1.2-4.9) 06/27/24 05:42 [place] # (Auto) 0.5 X10*3/uL (0.1-1.2) 06/27/24 05:42 Eos # (Auto) 0.2 X10*3/uL (0.0-0.4) 06/27/24 05:42 Baso # (Auto) 0.1 X10*3/uL (0.0-0.2) 06/27/24 05:42 Abs Immat Gran (auto) 0.01 X10*3/uL (0.00-0.03) 06/27/24 05:42 Absolute Neuts (auto) 2.1 x10*3/uL (2.0-8.3) 06/27/24 05:42 Absolute Nucleated RBC 0.000 X10*3/uL (0.0-0.012) 06/27/24 05:42 Nucleated RBC % (auto) 0.0 /100WBC (0.0-0.2) 06/27/24 05:42 Hold Purple Top SEE NOTE 06/29/24 09:24 PT 10.8 SEC (10.9-12.4) L 06/26/24 14:28 INR 0.9 (0.9-1.1) 06/26/24 14:28 APTT 32.2 SEC (26.0-36.8) 06/26/24 14:28 aPTT Heparin Protocol 37.4 SEC (53-77.9) L 06/28/24 12:22 D-Dimer High Sensitivty < 150 NG/ML 06/26/24 14:28 Sodium 140 mmol/L (135-145) 06/27/24 05:42 Potassium 4.5 mmol/L (3.3-5.1) 06/27/24 05:42 Chloride 103 mmol/L (96-108) 06/27/24 05:42 Carbon Dioxide 27 mmol/L (22-29) 06/27/24 05:42 Anion Gap 15 (12-20) 06/27/24 05:42 BUN 17 mg/dL (9-16) H 06/27/24 05:42 Creatinine 0.83 mg/dL (0.5-1.4) 06/27/24 05:42 Estim Creat Clear Calc 134.5 06/27/24 05:42 Estimated GFR > 60 06/27/24 05:42 Random Glucose 130 mg/dL (60-115) H 06/27/24 05:42 Lactic Acid 3.6 mmol/L (0.5-2.0) H* 06/26/24 05:46 Lactic Acid F/U @ 2Hr 2.7 mmol/L (0.5-2.0) H* 06/26/24 09:09 Lactic Acid F/U @ 4Hr 2.4 mmol/L (0.5-2.0) H* 06/26/24 11:30 Calcium 9.3 mg/dL (8.4-10.2) D 06/27/24 05:42 Total Bilirubin 0.1 mg/dL (0.0-1.0) 06/26/24 05:46 AST 23 U/L (5-37) 06/26/24 05:46 ALT 24 U/L (0-40) 06/26/24 05:46 Alkaline Phosphatase 75 U/L (39-117) 06/26/24 05:46 Total Creatine Kinase 138 U/L (38-174) 06/26/24 05:46 Troponin I High Sens < 2.7 ng/L (<3.5-35.0) 06/26/24 07:58 B-Natriuretic Peptide < 10 pg/mL (<100) 06/26/24 05:46 Total Protein 6.7 g/dL (6.5-8.0) 06/26/24 05:46 Albumin 3.4 g/dL (3.5-5.0) L 06/26/24 05:46 Urine Color Yellow 06/26/24 07:51 Urine Appearance Clear 06/26/24 07:51 Urine pH 7.0 (5.0-9.0) 06/26/24 07:51 Ur Specific [place] <= 1.005 (1.005-1.025) 06/26/24 07:51 Urine Protein Negative mg/dL (Neg-Trace) 06/26/24 07:51 Urine Glucose (UA) Negative mg/dL (Negative) 06/26/24 07:51 Urine Ketones Negative mg/dL (Negative) 06/26/24 07:51 Urine Blood Negative (Negative) 03 07:51 Urine Nitrite Negative (Negative) 03 07:51 Ur Leukocyte Esterase Negative (Negative) 06/26/24 07:51 Urine RBC 0-2 /HPF (0-2) 06/26/24 07:51 Urine WBC 0-5 /HPF (0-5) 06/26/24 07:51 Ur Squamous Epith Cells 0-2 /HPF (0-2) 06/26/24 07:51 Urine Bacteria None Seen (None Seen) 06/26/24 07:51 Hyaline Casts 0-2 /LPF (0-2) 06/26/24 07:51 Urine Opiates Screen Not Detected (Not Detect) 06/26/24 07:51 Ur Buprenorphine Scrn Not Detected ng/mL (Not Detect) 06/26/24 07:51 Ur Oxycodone Screen Not Detected ng/mL (Not Detect) 06/26/24 07:51 Urine Methadone Screen Positive ng/mL (Not Detect) H 06/26/24 07:51 Urine Fentanyl Screen POSITIVE (Not Detect) H 06/26/24 07:51 Ur Barbiturates Screen Not Detected (Not Detect) 03 07:51 Ur Phencyclidine Scrn Not Detected (Not Detect) 06/26/24 07:51 Ur Amphetamines Screen Not Detected (Not Detect) 06/26/24 07:51 U Benzodiazepines Scrn Not Detected (Not Detect) 06/26/24 07:51 Urine Cocaine Screen Not Detected (Not Detect) 06/26/24 07:51 U Marijuana (THC) Screen Not Detected (Not Detect) 06/26/24 07:51 Ethyl Alcohol < 10 mg/dL 06/26/24 05:46 Hep Bs Antigen Negative (Negative) 06/29/24 09:24 Hep Bs Antibody REACTIVE (Nonreactive) 06/29/24 09:24 Hep B Core Total Ab Reactive (Nonreactive) 06/29/24 09:24 Hep B Core IgM Ab Cancelled 06/29/24 09:24 Hepatitis C Ab (EIA) Reactive (Nonreactive) H 06/29/24 09:24 HIV 1&2 Ab/P24 Ag 4thGn Nonreactive (Nonreactive) 06/29/24 09:24 Influenza Type A (PCR) NEGATIVE (Negative) 06/26/24 07:27 Influenza Type B (PCR) NEGATIVE (Negative) 06/26/24 07:27 RSV RNA Qual (PCR) NEGATIVE (Negative) 06/26/24 07:27 SARS-CoV-2 RNA (RT-PCR) NEGATIVE (Negative) 06/26/24 07:27 Impressions Chest CTA 06/26/24 12:52 IMPRESSION: Acute pulmonary artery emboli, subsegmental pulmonary branches to the left lower lung lobe. Acute versus chronic airway disease, lung bases lingula and right middle lobe. Findings communicated to the requesting physician Dr. Tato Goff in the emergency department at 1:39 PM on June 26, 2024. Fleischner guidelines were followed. Electronically signed by: Dariel Romero MD 06/26/2024 01:43 PM EDT RP Discharge Plan Discharge Patient Disposition: er Psychiatric Hosp Discharge Diagnosis: near-syncope, pulmonary embolism, mood disorder, opioid use disorder [place] [facility] [place] [Provider Group] - 1 Week Physician,Eda Bhakta [Primary Care Provider] - 1 Week Discharge Medications: New acetaminophen 325 mg Tablet 650 mg PO Q6H PRN (Reason: Pain, Mild 1-3,Fever,Headache) Qty: 1 0RF nicotine 21 mg/24 hr Patch 24 Hour 21 mg transdermal DAILY Qty: 1 0RF methadone [Methadose] 10 mg/mL Concentrate 65 mg PO DAILY@0800 Qty: 1 0RF Rx Instructions: Partial Fill upon patient request. lorazepam 1 mg Tablet 1 mg PO TID PRN (Reason: Anxiety) Qty: 1 0RF nicotine (polacrilex) 2 mg Lozenge 2 mg buccal Q2H PRN (Reason: Nicotine Cravings) Qty: 1 0RF thiamine mononitrate (vit B1) 100 mg Tablet 100 mg PO DAILY Qty: 1 0RF Eliquis 5 mg Tablet 10 mg PO BID Qty: 1 0RF Continued atorvastatin 20 mg Tablet 20 mg PO BEDTIME divalproex 250 mg Tablet,Delayed Release (Dr/Ec) 750 mg PO BID olanzapine 5 mg Tablet 5 mg PO BEDTIME gabapentin 300 mg Capsule 600 mg PO TID folic acid 1 mg Tablet 1 mg PO DAILY bupropion HCl 150 mg Tablet Extended Release 24 Hr 150 mg PO BID mirtazapine 7.5 mg Tablet 7.5 mg PO BEDTIME Discontinued methadone [Methadone Intensol] 10 mg/mL Concentrate 55 mg PO DAILY Discharge Orders: Discharge Order (Routine); Ordered 06/29/24 Ordered By: Carla Matthew Diet: Advance to usual diet Activity on Discharge: As tolerated Stand Alone Forms: Patient Portal Discharge page Print Language: Citizen [place] Health Concerns: near-syncope, pulmonary embolism, mood disorder, opioid use disorder Plan of Treatment: take apixaban [Eliquis] 10 mg twice daily until 07/03 on 07/04, change to 5 mg twice daily, continue for life establish primary care as soon as possible psychiatric medication and treatment of opioid use disorder by psychiatry team
--- NOTE | 2024-06-29 12:11 | MHC.CM.PN ---
CM met with Patient at bedside; he expressed an interest in going to [facility]. CM relayed this information to the Care Team. CM will follow.
--- NOTE | 2024-06-29 12:15 | MHC.CM.PN ---
Per Care Team, [facility] today.
[2024-07-02 14:58] LABS: HCV Log PCR <1.18 NOT DETECTED Log IU/mL (NOT DETECTED); HepC Viral Load <15 NOT DETECTED IU/mL (NOT DETECTED)
== END 2024-06-29 13:08 | DRG 176 ==
LOC: HO.ED 10:22 → HO.EDOVER 14:34 → HO.IMC 17:40
PROVIDERS: Emergency Medicine; Hospitalist; Physician Assistant Medical; Student in an Organized Health Care Education/Training Program; Admitting Provider Physician Assistant; Emergency Provider Student in an Organized Health Care Education/Training Program; Visit Provider Family Medicine
DX: I26.99 Other pulmonary embolism without acute cor pulmonale (principal); E87.21 Acute metabolic acidosis; F11.20 Opioid dependence, uncomplicated; F19.90 Other psychoactive substance use, unspecified, uncomplicated; F17.210 Nicotine dependence, cigarettes, uncomplicated; E78.2 Mixed hyperlipidemia; R53.81 Other malaise; Z71.6 Tobacco abuse counseling; I95.1 Orthostatic hypotension; F39 Unspecified mood [affective] disorder; R45.850 Homicidal ideations; F10.90 Alcohol use, unspecified, uncomplicated; E78.5 Hyperlipidemia, unspecified; Z20.822 Contact with and (suspected) exposure to COVID-19; Z79.899 Other long term (current) drug therapy
CPT/HCPCS: 0241U; 36415; 71045; 71275; 80048; 80053; 80307; 81001; 82550; 83605; 83880; 84484; 85025; 85027; 85379; 85610; 85730; 86704; 86706; 86803; 87040; 87340; 87389; 87522; 93005; 93306; 93970; 97161; 99222; 99285; J0696; J1644; J2405; J7120; Q9957; Q9967; S9485

== ENCOUNTER → 2024-06-26 05:34 | Outpatient (BNV) | payer MEDICARE, MEDICAID, SELFPAY | PROVIDERS: Emergency Provider Student in an Organized Health Care Education/Training Program; Visit Provider Internal Medicine | DX: R06.02 Shortness of breath (principal) | CPT/HCPCS: 93010 ==

== ENCOUNTER → 2024-06-26 05:34 | Outpatient (BNV) | payer MEDICARE, MEDICAID, SELFPAY | PROVIDERS: Visit Provider Radiology Diagnostic Radiology | DX: I26.99 Other pulmonary embolism without acute cor pulmonale (principal); R06.02 Shortness of breath | CPT/HCPCS: 71275 ==

== ENCOUNTER 2024-06-26 14:10 | Outpatient (BNV) | payer MEDICARE, MEDICAID, SELFPAY | END 2024-06-27 07:00 | PROVIDERS: Admitting Provider Physician Assistant; Emergency Provider Student in an Organized Health Care Education/Training Program; Visit Provider Internal Medicine | DX: I42.8 Other cardiomyopathies (principal) | CPT/HCPCS: 93306 ==

== ENCOUNTER → 2024-06-26 14:10 | Outpatient (BNV) | payer MEDICARE, MEDICAID, SELFPAY | PROVIDERS: Admitting Provider Physician Assistant; Emergency Provider Student in an Organized Health Care Education/Training Program; Visit Provider Nurse Practitioner Psychiatric/Mental Health | DX: F11.90 Opioid use, unspecified, uncomplicated (principal) | CPT/HCPCS: 99222; 99231 ==

== ENCOUNTER → 2024-06-26 14:10 | Outpatient (BNV) | payer MEDICARE, MEDICAID, SELFPAY | PROVIDERS: Admitting Provider Physician Assistant; Emergency Provider Student in an Organized Health Care Education/Training Program; Visit Provider Physician Assistant | DX: I26.99 Other pulmonary embolism without acute cor pulmonale (principal); R55 Syncope and collapse | CPT/HCPCS: 99223; 99232; 99233; 99239 ==

== ENCOUNTER → 2024-06-26 14:10 | Outpatient (BNV) | payer MEDICARE, MEDICAID, SELFPAY | PROVIDERS: Admitting Provider Physician Assistant; Emergency Provider Student in an Organized Health Care Education/Training Program; Visit Provider Internal Medicine | DX: I26.99 Other pulmonary embolism without acute cor pulmonale (principal); F17.210 Nicotine dependence, cigarettes, uncomplicated | CPT/HCPCS: 99222 ==

== ENCOUNTER 2024-06-29 12:35 | Outpatient (BNV) | payer MEDICARE, SELFPAY | END 2024-07-06 14:20 | PROVIDERS: Admitting Provider Registered Nurse; Responsible Provider Registered Nurse; Visit Provider Internal Medicine Cardiovascular Disease | DX: Z13.6 Encounter for screening for cardiovascular disorders (principal) | CPT/HCPCS: 93010 ==

== ENCOUNTER 2024-06-29 12:35 | Outpatient (BNV) | payer MEDICARE, SELFPAY | END 2024-07-06 15:50 | PROVIDERS: Admitting Provider Registered Nurse; Responsible Provider Registered Nurse; Visit Provider Radiology Diagnostic Radiology | DX: M54.2 Cervicalgia (principal) | CPT/HCPCS: 72040 ==

== ENCOUNTER 2024-06-29 12:35 | Outpatient (BNV) | payer MEDICARE, SELFPAY | END 2024-07-01 12:55 | PROVIDERS: Admitting Provider Registered Nurse; Responsible Provider Registered Nurse; Visit Provider Nuclear Medicine | DX: R06.02 Shortness of breath (principal); R05.9 Cough, unspecified | CPT/HCPCS: 71045 ==

== ENCOUNTER 2024-06-29 12:35 | Inpatient (IN) | payer MEDICARE, SELFPAY ==
--- NOTE | ~2024-06-29 | XR_ITS ---
CLINICAL HISTORY: sob, cough 1 view chest x-ray Comparison: CT/IA/SR - CT ANGIO CHEST PE PROTOCOL - 06/26/24 12:52 EDT CR - XR CHEST 1V - 06/26/24 04:43 EDT Findings: The lungs are clear. Normal size heart. No acute fracture. IMPRESSION: 1. No acute findings. This document has been electronically signed by: Angel Delgado MD on 07/01/2024 13:38:26
--- NOTE | ~2024-06-29 | XR_ITS ---
EXAMINATION: XR CERVICAL SPINE CLINICAL INFORMATION: Neck pain s/p hanging attempt w/sheet in room COMPARISON: None available. TECHNIQUE: 3 views of the cervical spine were obtained. FINDINGS: There is normal cervical lordosis. The vertebral heights and alignment is normal. There is mild loss of C4-5 and C6-7 disc heights with mild ventral spondylosis. Rest of the disc heights are normal. There is no visible acute fracture, dislocation or subluxation seen. The prevertebral and paravertebral soft tissues are normal.. XR/XR cervical spine 3V IMPRESSION: Mild degenerative disc changes C3 4-5 and C6-C7 disc levels with mild ventral spondylosis. Electronically signed by: Hadley Stern MD 07/06/2024 04:01 PM EDT
[2024-06-29 13:22] VITALS: BP 129/78; PULSE 94; RESP 18; TEMP 36.4; O2SAT 95
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
--- OUTSIDE RECORDS SUMMARY | 2024-06-29 14:48 | XMS_ITS | Encounter Summary ---
Author Organization [facility] Address [address] [place] [address] Care Team Providers Care Director Organizational Name Role Phone Physician, Pcp Unknown Primary Care Provider Margaret vailable Encounter Details Date Type Department Care Team (Late st Contact Info) Description 06/25/2024 Lab Requisition [facility] [address] [place] [address] Karoline Rodas Other group home (current) drug therapy Social History Tobacco Use Types Packs/Day Years Used Date Smoking Tobacco: Never Assessed Sex and Gender Information Value Date Recorded Sex Assigned at Not on file Legal Sex Male 9:50 AM EDT Gender Identity Not on file Sexual Orientation Not on file documented as of this encounter Plan of Treatment Not on file documented as of this encounter Procedures Procedure Name Priority Date/Time Associated Diagnosis Comments VALPROIC ACID LEVEL, TOTAL Routine 06/25/2024 7:00 AM EDT Other terminal press operator (current) drug therapy documented in this encounter Results * (ABNORMAL) Valproic acid level, total (06/25/2024 7:00 AM EDT) Valproic Acid, Total 41(L) 50 - 100 mcg/mL LAB CHEMISTRY METHOD 06/25/2024 3:44 PM EDT [facility] Blood Venous blood specimen / Unknown Venipuncture / Unknown 06/25/2024 7:00 AM EDT 06/25/2024 9:52 AM EDT Karoline Rodas LAB BLOOD ORDERABLES Final Resul t [facility] [address] [place] [address], documented in this encounter Visit Diagnoses Diagnosis Other terminal press operator (current) drug therapy documented in this encounter Care Teams Director Organizational Relationship Specialty Start Date End Date Physician, Pcp Unknown PCP - General 06/28/24 documented as of this encounter
--- OUTSIDE RECORDS SUMMARY | 2024-06-29 14:48 | XMS_ITS | Encounter Summary ---
Author Organization [employer] Address [address] [place] [address] Care Team Providers Care Peripheral Edp Equipment Operator Name Role Phone Physician, Pcp Unknown Primary Care Provider Margaret vailable Encounter Details Date Type Department Care Team (Late st Contact Info) Description 06/25/2024 Lab Requisition [facility] Lab [address] [facility] [place] [address] Swapnil Jones NP [facility] [place], [place] [id number] Social History Tobacco Use Types Packs/Day Years Used Date Smoking Tobacco: Never Assessed Sex and Gender Information Value Date Recorded Sex Assigned at Not on file Legal Sex Male 9:50 AM EDT Gender Identity Not on file Sexual Orientation Not on file documented as of this encounter Plan of Treatment Not on file documented as of this encounter Visit Diagnoses Not on filedocumented in this encounter Care Teams Peripheral Edp Equipment Operator Relationship Specialty Start Date End Date Physician, Pcp Unknown PCP - General 06/28/24 documented as of this encounter
--- OUTSIDE RECORDS SUMMARY | 2024-06-29 14:48 | XMS_ITS | Encounter Summary ---
Author Organization [employer] Address [address] [place] [address] Care Team Providers Care Duplicator Punch Set Up Operator Name Role Phone Physician, Pcp Unknown Primary Care Provider Margaret vailable Encounter Details Date Type Department Care Team (Late st Contact Info) Description 06/25/2024 Lab Requisition [facility] Lab [address] [facility] [place] [address] Karoline Rodas Social History Tobacco Use Types Packs/Day Years [...] on filedocumented in this encounter Care Teams Duplicator Punch Set Up Operator Relationship Specialty Start Date End Date Physician, Pcp Unknown PCP - General 06/28/24 documented as of this encounter
--- OUTSIDE RECORDS SUMMARY | 2024-06-29 14:48 | XMS_ITS | Encounter Summary ---
Author Organization [employer] Address [address] [place] [address] Care Team Providers Care Office Manager Name Role Phone Physician, Pcp Unknown Primary Care Provider Margaret vailable Encounter Details Date Type Department Care Team (Late st Contact Info) Description 06/25/[address] [facility] - Main Lab [address] [place] [address] Swapnil Jones NP Formerly [facility] [place] [address] Other skilled nursing (current) drug therapy Social History Tobacco Use [...] Procedure Name Priority Date/Time Associated Diagnosis Comments LIPID PANEL WITH REFLEX TO DIRECT LDL Routine 06/25/2024 7:00 AM EDT Other long term care pharmacist (current) drug therapy LDL CHOLESTEROL, DIRECT Routine 06/25/2024 7:00 AM EDT Other skilled nursing (current) drug therapy COMPREHENSIVE METABOLIC PANEL Routine 06/25/2024 7:00 AM EDT Other long term care pharmacist (current) drug therapy documented in this encounter Results * LDL cholesterol, direct (06/25/2024 7:00 AM EDT) LDL Direct 100 <=100 mg/dL LAB CHEMISTRY METHOD 06/25/2024 12:48 PM EDT [facility] ([facility]) [facility] Blood Venous blood specimen / Unknown Venipuncture / Unknown 06/25/2024 7:00 AM EDT 06/25/2024 9:57 AM EDT us Swapnil Jones NP LAB BLOOD ORDERABLES Final Resu lt [facility] [address] [place] [address], [place] [phone] * (ABNORMAL) Lipid panel with reflex to direct LDL (06/25/2024 7:00 AM EDT) [facility] Signature Cholesterol 187 0 - 200 mg/dL LAB CHEMISTRY METHOD 06/25/2024 12:26 PM EDT [facility] Triglycerides 537(H) 0 - 150 mg/dL LAB CHEMISTRY METHOD 06/25/2024 12:26 PM T [facility] HDL 37(L) >=40 mg/dL LAB CHEMISTRY METHOD 06/25/2024 12:26 PM EDT [facility] LDL Calculated LAB CHEMISTRY METHOD 06/25/2024 12:26 PM EDT [facility] LAB Comment: Unable to calculate when triglycerides >400 mg/dL. Triglyceride value is >= 500. ??Calculated LDL is not meaningful. ??Direct LDL has been added. VLDL Cholesterol Nic LAB CHEMISTRY METHOD 06/25/2024 12:26 PM EDT [facility] LAB Comment:Unable to calculate when triglycerides >400 mg/dL. Non HDL Chol. (LDL+VLDL) LAB CHEMISTRY METHOD 06/25/2024 12:26 PM EDT [facility] LAB Comment:Unable to calculate when triglycerides >400 mg/dL. Chol/HDL Ratio 5.1(H) 0.0 - 4.4 LAB CHEMISTRY METHOD 06/25/2024 12:26 PM T [facility] LAB Blood Venous blood specimen / Unknown Venipuncture / Unknown 06/25/2024 7:00 AM EDT 06/25/2024 9:57 AM EDT us Swapnil Robert [employer]IST LAB BLOOD ORDERABLES Final Resu lt [facility] [address] [place] [address], * (ABNORMAL) Comprehensive metabolic panel (06/25/2024 7:00 AM EDT) Sodium 135 133 - 145 mmol/L LAB CHEMISTRY METHOD 06/25/2024 12:26 PM [facility] LAB Potassium 4.5 3.5 - 5.5 mmol/L LAB CHEMISTRY METHOD 06/25/2024 12:26 PM [facility] LAB Chloride 98 96 - 110 mmol/L LAB CHEMISTRY METHOD 06/25/2024 12:26 PM [facility] LAB CO2 25 21 - 32 mmol/L LAB CHEMISTRY METHOD 06/25/2024 12:26 PM [facility] LAB Anion Gap 12(H) 3 - 11 LAB CHEMISTRY METHOD 06/25/2024 12:26 PM [facility] LAB Glucose 159(H) 70 - 100 mg/dL LAB CHEMISTRY METHOD 06/25/2024 12:26 PM [facility] BUN 14 5 - 25 mg/dL LAB CHEMISTRY METHOD 06/25/2024 12:26 PM [facility] Creatinine 0.73 0.70 - 1.30 mg/dL LAB CHEMISTRY METHOD 06/25/2024 12:26 PM [facility] LAB eGFR 113 >=60 mL/min/1. 73m2 LAB CHEMISTRY METHOD 06/25/2024 12:26 PM [facility] LAB Comment:Calculation based on the??Chronic Kidney Disease Epidemiology Collaboration (CKD-EPI) equation refit??without adjustment for race. BUN/Creatinine Ratio 19.2 LAB CHEMISTRY METHOD 06/25/2024 12:26 PM [facility] Calcium 9.3 8.5 - 10.5 mg/dL LAB CHEMISTRY METHOD 06/25/2024 12:26 PM EDT [facility] AST (SGOT) 26 10 - 42 unit/L LAB CHEMISTRY METHOD 06/25/2024 12:26 PM T [facility] ALT (SGPT) 36 10 - 60 unit/L LAB CHEMISTRY METHOD 06/25/2024 12:26 PM [facility] Alkaline Phosphatase 96 42 - 121 unit/L LAB CHEMISTRY METHOD 06/25/2024 12:26 PM EDT [facility] Total Protein 7.4 6.0 - 8.0 g/dL LAB CHEMISTRY METHOD 06/25/2024 12:26 PM [facility] Albumin 3.4 3.2 - 5.0 g/dL LAB CHEMISTRY METHOD 06/25/2024 12:26 PM [facility] Total Bilirubin 0.2 0.0 - 1.4 mg/dL LAB CHEMISTRY METHOD 06/25/2024 12:26 PM T [facility] Blood Venous blood specimen / Unknown Venipuncture / Unknown 06/25/2024 7:00 AM EDT 06/25/2024 9:57 AM EDT us Swapnil Jones NP LAB BLOOD ORDERABLES Final Resu lt [facility] [address] [place] [address], documented in this encounter Visit Diagnoses Diagnosis Other skilled nursing (current) drug therapy documented in this encounter Care Teams Office Manager Relationship Specialty Start Date End Date Physician, Pcp Unknown PCP - General 06/28/24 documented as of this encounter
--- OUTSIDE RECORDS SUMMARY | 2024-06-29 14:48 | XMS_ITS | Clinical Summary ---
Author Organization [address] [facility] Address [address] [place] [address] Phone Care Team Providers Care Vp Of Marketing Name Role Phone Physician, Pcp Unknown Primary Care Provider Margaret vailable Encounters Date Type Department Care Team Description 06/25/2024 Lab Requisition [facility] Lab [address] [place] [phone] Swapnil Jones NP Other ferry terminal supervisor (current) drug therapy 06/25/2024 Lab Requisition [facility] Lab [address] [place] [phone] Swapnil Jones NP 06/25/2024 Lab Requisition [facility] Lab [address] [place] [phone] Karoline Rodas Other ferry terminal supervisor (current) drug therapy 06/25/2024 Lab Requisition [facility] Lab [address] [place] [phone] Karoline Rodas from Last 3 Months Social History Tobacco Use Types Packs/Day Years Used Date Smoking Tobacco: Never Assessed Sex and Gender Information Value Date Recorded Sex Assigned at Not on file Legal Sex Male 9:50 AM EDT Gender Identity Not on file Sexual Orientation Not on file Plan of Treatment Health Maintenance Due Date Last Done Comments DTaP,Tdap,and Td Vaccines (1 - Tdap) 1996 Hepatitis B Vaccines (1 of 3 - 19+ 3-dose series) 1996 COVID-19 Vaccine ( - 2023-2 5 season) 2023 Influenza Vaccine (#1) 2023 Colorectal Cancer Screening: Colonoscopy 06/25/2024 Depression Screening 06/25/2024 HIV Screening 06/25/2024 Hepatitis C Screening 06/25/2024 Social Influencers of Health Screening 06/25/2024 Cholesterol Screening (Lipid Panel) 06/25/2029 06/25/2024, 06/25/2024 HIB Vaccines Aged Out No longer eligi ble based on patient's age to complete this topic HPV Vaccines Aged Out No longer eligi ble based on patient's age to complete this topic Hepatitis A Vaccines Aged Out No long er eligible based on patient's age to complete this topic IPV Vaccines Aged Out No longer eligi ble based on patient's age to complete this topic MMR Vaccines Aged Out No longer eligi ble based on patient's age to complete this topic Meningococcal ACWY Vaccine Aged Out N o longer eligible based on patient's age to complete this topic Meningococcal B Vacine Aged Out No lo nger eligible based on patient's age to complete this topic Pneumococcal Vaccine: Pediatrics (0 to 5 Years) and At-Risk Patients (6 to 64 Years) Aged Out No longer eligible b ased on patient's age to complete this topic RSV Immunization Patients Under 20 months Aged Out No longer eligible b ased on patient's age to complete this topic Varicella Vaccines Aged Out No longer eligible based on patient's age to complete this topic Procedures Procedure Name Priority Date/Time Associated Diagnosis Comments LDL CHOLESTEROL, DIRECT Routine 06/25/2024 7:00 AM EDT Other care home (current) drug therapy LIPID PANEL WITH REFLEX TO DIRECT LDL Routine 06/25/2024 7:00 AM EDT Other ferry terminal supervisor (current) drug therapy COMPREHENSIVE METABOLIC PANEL Routine 06/25/2024 7:00 AM EDT Other ferry terminal supervisor (current) drug therapy VALPROIC ACID LEVEL, TOTAL Routine 06/25/2024 7:00 AM EDT Other care home (current) drug therapy from Last 3 Months Results * (ABNORMAL) Lipid panel with reflex to direct LDL (06/25/2024 7:00 AM EDT) [facility] Cholesterol 187 0 - 200 mg/dL LAB CHEMISTRY METHOD 06/25/2024 12:26 PM EDT [facility] Triglycerides 537(H) 0 - 150 mg/dL LAB CHEMISTRY METHOD 06/25/2024 12:26 PM EDT [facility] HDL 37(L) >=40 mg/dL LAB CHEMISTRY METHOD 06/25/2024 12:26 PM EDT [facility] LDL Calculated LAB CHEMISTRY METHOD 06/25/2024 12:26 PM EDT [facility] Comment: Unable to calculate when triglycerides >400 mg/dL. Triglyceride value is >= 500. ??Calculated LDL is not meaningful. ??Direct LDL has been added. VLDL Cholesterol Nic LAB CHEMISTRY METHOD 06/25/2024 12:26 PM EDT [facility] Comment:Unable to calculate when triglycerides >400 mg/dL. Non HDL Chol. (LDL+VLDL) LAB CHEMISTRY METHOD 06/25/2024 12:26 PM EDT [facility] Comment:Unable to calculate when triglycerides >400 mg/dL. Chol/HDL Ratio 5.1(H) 0.0 - 4.4 LAB CHEMISTRY METHOD 06/25/2024 12:26 PM EDT [facility] LAB Blood Venous blood specimen / Unknown Venipuncture / Unknown 06/25/2024 7:00 AM EDT 06/25/2024 9:57 AM EDT Swapnil Jones NP LAB BLOOD ORDERABLES Final Resu lt [facility] [address] [place] [address], * LDL cholesterol, direct (06/25/2024 7:00 AM EDT) LDL Direct 100 <=100 mg/dL LAB CHEMISTRY METHOD 06/25/2024 12:48 PM EDT [facility] Blood Venous blood specimen / Unknown Venipuncture / Unknown 06/25/2024 7:00 AM EDT 06/25/2024 9:57 AM EDT Swapnil Jones NP LAB BLOOD ORDERABLES Final Resu lt [facility] [address] [place] [address], [place] [phone] * (ABNORMAL) Valproic acid level, total (06/25/2024 7:00 AM EDT) Pathologist [facility] Valproic Acid, Total 41(L) 50 - 100 mcg/mL LAB CHEMISTRY METHOD 06/25/2024 3:44 PM EDT [facility] Blood Venous blood specimen / Unknown Venipuncture / Unknown 06/25/2024 7:00 AM EDT 06/25/2024 9:52 AM EDT Karoline Rodas LAB BLOOD ORDERABLES Final Resul t Performing Organization Address [facility]/ZIP Co de Phone Number [facility] [address] [place] [address], [place] [phone] * (ABNORMAL) Comprehensive metabolic panel (06/25/2024 7:00 AM EDT) [facility] Sodium 135 133 - 145 mmol/L LAB CHEMISTRY METHOD 06/25/2024 12:26 PM EDT [facility] Potassium 4.5 3.5 - 5.5 mmol/L LAB CHEMISTRY METHOD 06/25/2024 12:26 PM EDT [facility] Chloride 98 96 - 110 mmol/L LAB CHEMISTRY METHOD 06/25/2024 12:26 PM T [facility] CO2 25 21 - 32 mmol/L LAB CHEMISTRY METHOD 06/25/2024 12:26 PM T [facility] Anion Gap 12(H) 3 - 11 LAB CHEMISTRY METHOD 06/25/2024 12:26 PM [facility] Glucose 159(H) 70 - 100 mg/dL LAB CHEMISTRY METHOD 06/25/2024 12:26 PM T [facility] BUN 14 5 - 25 mg/dL LAB CHEMISTRY METHOD 06/25/2024 12:26 PM [facility] Creatinine 0.73 0.70 - 1.30 mg/dL LAB CHEMISTRY METHOD 06/25/2024 12:26 PM [facility] LAB eGFR 113 >=60 mL/min/1. 73m2 LAB CHEMISTRY METHOD 06/25/2024 12:26 PM [facility] LAB Comment:Calculation based on the??Chronic Kidney Disease Epidemiology Collaboration (CKD-EPI) equation refit??without adjustment for race. BUN/Creatinine Ratio 19.2 LAB CHEMISTRY METHOD 06/25/2024 12:26 PM [facility] Calcium 9.3 8.5 - 10.5 mg/dL LAB CHEMISTRY METHOD 06/25/2024 12:26 PM [facility] AST (SGOT) 26 10 - 42 unit/L LAB CHEMISTRY METHOD 06/25/2024 12:26 PM [facility] ALT (SGPT) 36 10 - 60 unit/L LAB CHEMISTRY METHOD 06/25/2024 12:26 PM [facility] Alkaline Phosphatase 96 42 - 121 unit/L LAB CHEMISTRY METHOD 06/25/2024 12:26 PM [facility] Total Protein 7.4 6.0 - 8.0 g/dL LAB CHEMISTRY METHOD 06/25/2024 12:26 PM [facility] Albumin 3.4 3.2 - 5.0 g/dL LAB CHEMISTRY METHOD 06/25/2024 12:26 PM [facility] Total Bilirubin 0.2 0.0 - 1.4 mg/dL LAB CHEMISTRY METHOD 06/25/2024 12:26 PM [facility] LAB Blood Venous blood specimen / Unknown Venipuncture / Unknown 06/25/2024 7:00 AM EDT 06/25/2024 9:57 AM EDT us Swapnil Jones [employer]PER[employer] LAB BLOOD ORDERABLES Final Resu lt [facility] [address] [place] [address], [place] [phone] from Last 3 Months Care Teams Vp Of Marketing Relationship Specialty Start Date End Date Physician, Pcp Unknown PCP - General 06/28/24
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
[2024-06-29] MEDS: LORazepam 0.5 MG TABLET PO ×2 (15:39→20:26)
[2024-06-29] MEDS: buPROPion HCl XL 150 MG TAB.ER.24H PO (15:56)
[2024-06-29] MEDS: Gabapentin 300 MG CAPSULE 600 MG PO ×2 (15:56→20:25)
[2024-06-29] MEDS: Nicotine Polacrilex Lozenge 2 MG LOZENGE BUCCAL ×5 (16:07→21:27)
--- NOTE | 2024-06-29 17:02 | HE.PHANOTE ---
METHADONE CONFIRMATION FORM Patient transfered from [id number]. Methadon form already received
--- NOTE | 2024-06-29 17:34 | PC.NURSE ---
Addendum entered by Yudelka Hernandez RN 06/29/24 18:01: Rachel the linen room supervisor at [facility] called back shortly after to inform this nurse that the patients belongings were given to a transportation company called [employer] yesterday 06/28 to be sent [place] [facility], but was not able to give this nurse any information on how to contact them. This nurse was able to find and contact [employer] in [facility], though they denied any recent transportation of items from [facility] to [facility] within the last week. Original Note: This nurse spoke with the nursing linen room supervisor at [facility] this evening regarding pt's belongings. Per the linen room supervisor, pt's belongings were sent with him when he was transferred to [facility], though pt states they were all left behind and he arrived to our unit from [facility] with only the clothes he was wearing. This nurse requested staff at [facility] to double check for José Luis's belongings and was informed by their nursing linen room supervisor that she would call back with an update.
[2024-06-29] MEDS: OLANZapine 5 MG TABLET PO ×3 (19:25→20:35)
[2024-06-29 19:50] VITALS: RESP 16
[2024-06-29] MEDS: Apixaban 5 MG TABLET 10 MG PO (20:25)
[2024-06-29] MEDS: Divalproex Sodium 250 MG TABLET.DR 750 MG PO (20:25)
[2024-06-29] MEDS: Atorvastatin Calcium 20 MG TABLET PO (20:26)
[2024-06-29] MEDS: Melatonin 3 MG TABLET PO (20:26)
[2024-06-29] MEDS: Mirtazapine 7.5 MG TABLET PO (20:26)
[2024-06-29] MEDS: traZODone HCL 50 MG TABLET PO (20:26)
[2024-06-29 21:07] VITALS: BMI 30.7
--- NOTE | 2024-06-30 01:50 | PC.NURSE ---
Nani Gavin from [facility] called to inform staff stat their documentation stated the patients belongings had been brought to [facility] – [place], [place], fourth floor. the possessions were located and brought to the unit
[2024-06-30] MEDS: OLANZapine 5 MG TABLET PO ×5 (03:34→23:32)
[2024-06-30] MEDS: Nicotine Polacrilex Lozenge 2 MG LOZENGE BUCCAL ×8 (03:37→22:32)
[2024-06-30 08:00] VITALS: BP 136/64; PULSE 78; RESP 16; TEMP 37.1; O2SAT 97
[2024-06-30] MEDS: methADONE HCl 20 MG/2 ML ORAL.CONC 65 MG PO (08:09)
[2024-06-30] MEDS: Apixaban 5 MG TABLET 10 MG PO ×2 (08:46→20:18)
[2024-06-30] MEDS: Gabapentin 300 MG CAPSULE 600 MG PO ×3 (08:46→20:19)
[2024-06-30] MEDS: LORazepam 0.5 MG TABLET PO ×3 (08:46→20:19)
[2024-06-30] MEDS: Folic Acid 1 MG TABLET PO (08:46)
[2024-06-30] MEDS: buPROPion HCl XL 150 MG TAB.ER.24H PO ×2 (08:46→15:06)
[2024-06-30] MEDS: Divalproex Sodium 250 MG TABLET.DR 750 MG PO ×2 (08:46→20:18)
[2024-06-30] MEDS: Thiamine HCL 100 MG TABLET PO (08:46)
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
[2024-06-30 09:01] LABS: Alanine Aminotransferase 47 U/L (0-40); Albumin Level 3.6 g/dL (3.5-5.0); Alkaline Phosphatase 80 U/L (39-117); Anion Gap 14 (12-20); Aspartate Amino Transferase 29 U/L (5-37); Bilirubin Total 0.1 mg/dL (0.0-1.0); Blood Urea Nitrogen 17 mg/dL (9-16); Calcium 9.1 mg/dL (8.4-10.2); Carbon Dioxide 28 mmol/L (22-29); Chloride 100 mmol/L (96-108); Cholesterol 216 mg/dL (<200); Creatinine Clr Calc Pharmacy 137.3; Estimated Glomerular Filt Rate > 60; Glucose Fasting 127 mg/dL (60-99); HDL Cholesterol 46 mg/dL (>40); LDL Cholesterol Calculated 102 mg/dL (<100); Potassium 4.1 mmol/L (3.3-5.1); Sodium 138 mmol/L (135-145); Total Protein 7.2 g/dL (6.5-8.0); Triglycerides 341 mg/dL (<150)
[2024-06-30] MEDS: hydrOXYzine HCL 25 MG TABLET PO (09:46)
[2024-06-30 20:14] VITALS: BP 125/73; PULSE 95; RESP 16; TEMP 36.7; O2SAT 94
[2024-06-30] MEDS: Atorvastatin Calcium 20 MG TABLET PO (20:18)
[2024-06-30] MEDS: Mirtazapine 7.5 MG TABLET PO (20:19)
[2024-06-30] MEDS: Melatonin 3 MG TABLET PO (20:19)
[2024-06-30] MEDS: traZODone HCL 50 MG TABLET PO (23:32)
[2024-07-01] MEDS: methADONE HCl 20 MG/2 ML ORAL.CONC 65 MG PO (08:05)
[2024-07-01 08:49] VITALS: BP 114/68; PULSE 82; RESP 16; TEMP 36.9; O2SAT 93
[2024-07-01] MEDS: Divalproex Sodium 250 MG TABLET.DR 750 MG PO ×2 (08:50→23:04)
[2024-07-01] MEDS: Apixaban 5 MG TABLET 10 MG PO ×2 (08:51→23:04)
[2024-07-01] MEDS: Folic Acid 1 MG TABLET PO (08:51)
[2024-07-01] MEDS: Thiamine HCL 100 MG TABLET PO (08:52)
[2024-07-01] MEDS: buPROPion HCl XL 150 MG TAB.ER.24H PO ×2 (08:52→15:59)
[2024-07-01] MEDS: Nicotine Polacrilex Lozenge 2 MG LOZENGE BUCCAL ×9 (08:52→23:38)
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
--- NOTE | 2024-07-01 09:48 | PC.NURSE ---
Pt appears over sedated during medication pass in the morning. This typewriters functional tester held Gabapentin and Ativan and reported this information to Pam Damian NP. She stated ok .
--- NOTE | 2024-07-01 11:34 | PC.NURSE ---
This patient asked about follow uup care from his newly dx PE. He also stated that he is not able to take a full breath. During medication pass, pt.'s O2 dropped to 88% x2. When queued, pt took a deep breath and it went up into WNL. All of this information reported to Morelia Damian NP, who stated that she will place a hospitalist consult to address these concerns.
--- NOTE | 2024-07-01 11:55 | HO.ADDICTPRO ---
Subjective Subjective Date of Service: 07/01/24 Reason For Visit: crisis Interim History: Patient seen in follow up on unit for methadone dose titration Patient sitting in common area, drinking coffee and writing in journal He reports that he has no withdrawal sx, but is requesting to increase dose further with goal to get to his previous dose of 145mg. Reports difficulty sleeping -- I am up and down all night Current dose is 65mg He reports ongoing anxiety and feeling like he can't take a full breath sometimes . He appears overall comfortable, however speech is somewhat slowed. RN reports he was quite sedated this morning after morning methadone dose, and scheduled lorazepam and gabapentin were both held as a result. RN reporting that patient was satting in mid to high 80's in AM and requiring prompts to wake and take deep breaths. Review of Systems Constitutional: Reports as per HPI Mental Status Exam Mental Status Exam Patient Appearance: Appropriate Level of Consciousness: Awake Patient Behavior: Appropriate Affect Description: Flat Speech Pattern: Clear (slowed) Diagnostics Vital Signs (24Hr): Vital Signs - 24 hr 06/30/24 20:14 07/01/24 08:49 Temperature 98.0 F 98.4 F Pulse Rate 95 82 Respiratory Rate 16 16 Blood Pressure 125/73 114/68 Pulse Oximetry 94 93 Oxygen Delivery Method Room Air Room Air BMI result Body Mass Index 30.7 Labs 06/30/24 07:54 Labs: Laboratory Results - last 48 hr 06/30/24 07:54 Sodium 138 Potassium 4.1 Chloride 100 Carbon Dioxide 28 Anion Gap 14 BUN 17 H Creatinine 0.80 Estim Creat Clear Calc 137.3 Estimated GFR > 60 Fasting Glucose 127 H Calcium 9.1 Total Bilirubin 0.1 AST 29 ALT 47 H Alkaline Phosphatase 80 Total Protein 7.2 Albumin 3.6 Triglycerides 341 H Cholesterol 216 H LDL Cholesterol, Calc 102 H HDL Cholesterol 46 Medications Medications Current Medications Acetaminophen (Acetaminophen 325 Mg Tablet) 650 mg PO Q6H PRN PRN Reason: Headache/Pain, Scale 1-10 Al Hydroxide/Mg Hydroxide (Magnesium Hydrox/Alum Hydrox 30 Ml Oral.Susp) 30 ml PO Q6H PRN PRN Reason: Heartburn/Nausea Apixaban (Apixaban 5 Mg Tablet) 10 mg PO BID [facility] Last Admin: 07/01/24 08:51 Dose: 10 mg Atorvastatin Calcium (Atorvastatin Calcium 20 Mg Tablet) 20 mg PO BEDTIME [facility] Last Admin: 06/30/24 20:18 Dose: 20 mg Bupropion HCl (Bupropion Hcl Xl 150 Mg Tab.Er.24h) 150 mg PO BID@0900,1600 [facility] Last Admin: 07/01/24 08:52 Dose: 150 mg Divalproex Sodium (Divalproex Sodium 250 Mg Tablet.Dr) 750 mg PO BID [facility] Last Admin: 07/01/24 08:50 Dose: 750 mg Folic Acid (Folic Acid 1 Mg Tablet) 1 mg PO DAILY [facility] Last Admin: 07/01/24 08:51 Dose: 1 mg Gabapentin (Gabapentin 300 Mg Capsule) 600 mg PO TID [facility] Last Admin: 07/01/24 09:49 Dose: Not Given Hydroxyzine HCl (Hydroxyzine Hcl 25 Mg Tablet) 25 mg PO Q6H PRN PRN Reason: mild anxiety Last Admin: 06/30/24 09:46 Dose: 25 mg Lorazepam (Lorazepam 0.5 Mg Tablet) 0.5 mg PO TID [facility] Last Admin: 07/01/24 09:49 Dose: Not Given Magnesium Hydroxide (Milk Of Magnesia 30 Ml Oral.Susp) 30 ml PO DAILY PRN PRN Reason: Constipation Melatonin (Melatonin 3 Mg Tablet) 3 mg PO BEDTIME [facility] Last Admin: 06/30/24 20:19 Dose: 3 mg Methadone HCl (Methadone Hcl 20 Mg/2 Ml Oral.Conc) 65 mg PO DAILY@0800 [facility] Last Admin: 07/01/24 08:05 Dose: 65 mg Mirtazapine (Mirtazapine 7.5 Mg Tablet) 7.5 mg PO BEDTIME [facility] Last Admin: 06/30/24 20:19 Dose: 7.5 mg Nicotine (Nicotine 21 Mg Patch.Td24) 21 mg TRANSDERMA DAILY [facility] Last Admin: 07/01/24 08:51 Dose: Not Given Nicotine Polacrilex (Nicotine Polacrilex 2 Mg Gum) 4 mg BUCCAL Q2H PRN PRN Reason: Nicotine Cravings Nicotine Polacrilex (Nicotine Polacrilex Lozenge 2 Mg Lozenge) 2 mg BUCCAL Q1H PRN PRN Reason: Nicotine Cravings Last Admin: 07/01/24 10:49 Dose: 2 mg Olanzapine (Olanzapine 5 Mg Tablet) 5 mg PO BEDTIME [facility] Last Admin: 06/30/24 20:19 Dose: 5 mg Olanzapine (Olanzapine 5 Mg Tablet) 5 mg PO Q4H PRN PRN Reason: agitation Last Admin: 06/30/24 23:32 Dose: 5 mg Thiamine HCl (Thiamine Hcl 100 Mg Tablet) 100 mg PO DAILY [facility] Last Admin: 07/01/24 08:52 Dose: 100 mg Trazodone HCl (Trazodone Hcl 50 Mg Tablet) 50 mg PO BEDTIME MRX1 PRN PRN Reason: Insomnia Last Admin: 06/30/24 23:32 Dose: 50 mg Allergies Allergies Allergy/AdvReac Type Severity Reaction Status Date / Time ketamine AdvReac Unknown Verified 06/26/24 05:28 prazosin AdvReac Unknown Verified 06/26/24 05:28 Assessment & Plan Assessment & Plan (1) Opioid use disorder: Status: Acute Code(s): F11.90 - Opioid use, unspecified, uncomplicated Assessment and Plan: methadone decreased to 60mg daily. Despite patient requesting to increase dose, it will be held here due to concern for oversedation. due to risk of overdose with decreasing dose further, consider decreasing other sedating agents before decreasing methadone further avoid dosing gabapentin, lorazepam, etc at the same time as methadone RN notified provider of patient c/o SOB and reported desats this morning Total time managing care of this patient today 25___ minutes.
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
[2024-07-01 12:25] VITALS: O2SAT 92
[2024-07-01] MEDS: Gabapentin 300 MG CAPSULE 600 MG PO ×2 (14:06→23:04)
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
[2024-07-01 15:00] LABS: Influenza A PCR NEGATIVE (Negative); Influenza B PCR NEGATIVE (Negative); Resp Syncy Virus RNA Qual PCR NEGATIVE (Negative); SARS COV2 PCR INHOUSE NEGATIVE (Negative)
[2024-07-01] MEDS: hydrOXYzine HCL 25 MG TABLET PO (17:18)
[2024-07-01] MEDS: OLANZapine 5 MG TABLET PO (17:18)
[2024-07-01 20:00] VITALS: BP 145/105; PULSE 94; RESP 16; TEMP 37.4; O2SAT 95
[2024-07-01] MEDS: LORazepam 0.5 MG TABLET PO (20:05)
[2024-07-01 22:27] VITALS: BP 128/72; PULSE 87; RESP 16; TEMP 37.6; O2SAT 95
[2024-07-01] MEDS: Acetaminophen 325 MG TABLET 650 MG PO (22:32)
[2024-07-01] MEDS: Atorvastatin Calcium 20 MG TABLET PO (23:04)
[2024-07-01] MEDS: Mirtazapine 7.5 MG TABLET PO (23:05)
[2024-07-01] MEDS: Melatonin 3 MG TABLET PO (23:05)
[2024-07-01 23:12] VITALS: TEMP 37
--- NOTE | 2024-07-01 23:17 | PC.NURSE ---
hx w/d seizures reported this evening. this was in response to asking patient as to why he takes gabapentin.
[2024-07-02 08:00] VITALS: BP 114/70; PULSE 79; RESP 16; TEMP 36.4; O2SAT 97
[2024-07-02] MEDS: methADONE HCl 20 MG/2 ML ORAL.CONC 60 MG PO (08:04)
[2024-07-02] MEDS: Apixaban 5 MG TABLET 10 MG PO ×2 (08:46→21:21)
[2024-07-02] MEDS: Divalproex Sodium 250 MG TABLET.DR 750 MG PO ×2 (08:46→21:21)
[2024-07-02] MEDS: buPROPion HCl XL 150 MG TAB.ER.24H PO ×2 (08:46→15:01)
[2024-07-02] MEDS: Gabapentin 300 MG CAPSULE 600 MG PO ×3 (08:47→21:19)
[2024-07-02] MEDS: Folic Acid 1 MG TABLET PO (08:48)
[2024-07-02] MEDS: Thiamine HCL 100 MG TABLET PO (08:48)
[2024-07-02] MEDS: Nicotine Polacrilex Lozenge 2 MG LOZENGE BUCCAL ×10 (08:52→21:21)
[2024-07-02] MEDS: LORazepam 0.5 MG TABLET PO ×2 (08:52→21:21)
[2024-07-02] MEDS: OLANZapine 5 MG TABLET PO ×2 (14:21→21:20)
[2024-07-02] MEDS: hydrOXYzine HCL 25 MG TABLET PO (14:21)
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
[2024-07-02 20:00] VITALS: BP 131/66; PULSE 82; RESP 16; TEMP 36.9; O2SAT 95
[2024-07-02] MEDS: Atorvastatin Calcium 20 MG TABLET PO (21:20)
[2024-07-02] MEDS: Melatonin 3 MG TABLET PO (21:20)
[2024-07-02] MEDS: Mirtazapine 7.5 MG TABLET PO (21:20)
[2024-07-02] MEDS: traZODone HCL 50 MG TABLET PO (21:21)
[2024-07-03] MEDS: Nicotine Polacrilex Lozenge 2 MG LOZENGE BUCCAL ×8 (04:46→21:11)
[2024-07-03] MEDS: hydrOXYzine HCL 25 MG TABLET PO ×2 (04:47→21:09)
[2024-07-03 07:33] VITALS: BP 118/58; PULSE 82; RESP 14; TEMP 36.9; O2SAT 93
[2024-07-03] MEDS: methADONE HCl 20 MG/2 ML ORAL.CONC 60 MG PO (07:46)
[2024-07-03] MEDS: Folic Acid 1 MG TABLET PO (08:12)
[2024-07-03] MEDS: Thiamine HCL 100 MG TABLET PO (08:12)
[2024-07-03] MEDS: Apixaban 5 MG TABLET 10 MG PO ×2 (08:12→21:10)
[2024-07-03] MEDS: Divalproex Sodium 250 MG TABLET.DR 750 MG PO ×2 (08:12→21:10)
[2024-07-03] MEDS: buPROPion HCl XL 150 MG TAB.ER.24H PO ×2 (08:12→15:14)
[2024-07-03] MEDS: LORazepam 0.5 MG TABLET PO (08:12)
[2024-07-03] MEDS: Gabapentin 300 MG CAPSULE 600 MG PO ×3 (08:12→21:09)
[2024-07-03] MEDS: OLANZapine 5 MG TABLET PO ×2 (09:04→21:23)
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
[2024-07-03 10:11] LABS: Ammonia 59 umol/L (13-55)
[2024-07-03 10:14] LABS: Valproate 64.7 mcg/mL (50.0-100.0)
[2024-07-03 10:19] LABS: Alanine Aminotransferase 43 U/L (0-40); Albumin Level 3.7 g/dL (3.5-5.0); Alkaline Phosphatase 81 U/L (39-117); Aspartate Amino Transferase 38 U/L (5-37); Bilirubin Direct < 0.2 mg/dL (0.0-0.5); Bilirubin Total 0.2 mg/dL (0.0-1.0); Total Protein 7.2 g/dL (6.5-8.0)
[2024-07-03] MEDS: Lactulose 20 GM/30 ML SOLUTION 40 GM PO (10:47)
--- NOTE | 2024-07-03 16:20 | MHC.RECOVRN ---
Met with pt in 306-2 to follow up and provide support.? Pt awake, alert, easily engages in conversation but increasingly agitated. Pt reports that his current dose of methadone is not enough . He reports good sx management in the afternoon but by the morning it has worn off and he reports experiencing bone/joint aches, chills and restlessness. He is also reporting cravings. Update provided to Heidi Elmore, LARYNGOLOGIST and [facility] team for ongoing follow up. Pt denies other concerns at this time.? T/w available as needed.
[2024-07-03 20:00] VITALS: BP 131/75; PULSE 81; RESP 16; TEMP 36.6; O2SAT 95
[2024-07-03] MEDS: Melatonin 3 MG TABLET 6 MG PO (21:09)
[2024-07-03] MEDS: Mirtazapine 15 MG TABLET PO (21:09)
[2024-07-03] MEDS: Atorvastatin Calcium 20 MG TABLET PO (21:10)
[2024-07-03] MEDS: traZODone HCL 50 MG TABLET PO (21:11)
[2024-07-04] MEDS: Nicotine Polacrilex Lozenge 2 MG LOZENGE BUCCAL ×12 (01:02→22:30)
[2024-07-04 07:35] VITALS: BP 104/59; PULSE 76; RESP 16; TEMP 36.9; O2SAT 94
[2024-07-04] MEDS: methADONE HCl 20 MG/2 ML ORAL.CONC 60 MG PO (07:51)
[2024-07-04] MEDS: Divalproex Sodium 250 MG TABLET.DR 750 MG PO ×2 (08:36→22:30)
[2024-07-04] MEDS: Gabapentin 300 MG CAPSULE 600 MG PO ×3 (08:37→22:30)
[2024-07-04] MEDS: Apixaban 5 MG TABLET PO ×2 (08:37→22:29)
[2024-07-04] MEDS: buPROPion HCl XL 150 MG TAB.ER.24H 450 MG PO (08:37)
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
[2024-07-04 15:45] VITALS: BP 112/58; PULSE 89; RESP 18; TEMP 36.9; O2SAT 95
[2024-07-04] MEDS: levalbuterol HCL 1.25 MG/3 ML VIAL.NEB INHALE (16:09)
--- NOTE | 2024-07-04 16:52 | PC.NURSE ---
Pt approached TW with c/o positional SOB since last evening. Vital signs stable in the am and retaken at 1545, BP 112/58, P89, T 98.5, O2 95%. Pt was not diaphoretic, no noted dyspnea, ambulating and speaking w/o difficulty. Pt stated, I donn feel like I did before I had the clot. Provider and hospitalist notified, no changes at this time, will continue to monitor. Pt provider prn inhaler as ordered. Pt comfortably watching TV following intervention.
[2024-07-04 19:29] VITALS: BP 123/70; PULSE 85; RESP 16; TEMP 37.2; O2SAT 95
[2024-07-04] MEDS: Atorvastatin Calcium 20 MG TABLET PO (22:30)
[2024-07-04] MEDS: Melatonin 3 MG TABLET 6 MG PO (22:30)
[2024-07-04] MEDS: Mirtazapine 15 MG TABLET PO (22:30)
[2024-07-05] MEDS: Nicotine Polacrilex Lozenge 2 MG LOZENGE BUCCAL ×10 (01:02→21:41)
[2024-07-05 07:00] VITALS: BMI 31.9
[2024-07-05] MEDS: methADONE HCl 20 MG/2 ML ORAL.CONC 60 MG PO (08:01)
[2024-07-05] MEDS: Gabapentin 300 MG CAPSULE 600 MG PO ×3 (08:35→21:41)
[2024-07-05] MEDS: Divalproex Sodium 250 MG TABLET.DR 750 MG PO ×2 (08:35→21:41)
[2024-07-05] MEDS: buPROPion HCl XL 150 MG TAB.ER.24H 450 MG PO (08:36)
[2024-07-05] MEDS: Apixaban 5 MG TABLET PO ×2 (08:37→21:41)
[2024-07-05 08:38] LABS: MANUAL DIFF FLAG NO
[2024-07-05 08:44] LABS: Basophils Absolute Auto 0.1 X10*3/uL (0.0-0.2); Basophils Percent Auto 0.9 % (0-2); Eosinophils Absolute Auto 0.2 X10*3/uL (0.0-0.4); Eosinophils Percent Auto 3.9 % (0-4); Hemoglobin 12.3 g/dl (14.0-18.0); Imm Gran Abs Auto 0.02 X10*3/uL (0.00-0.03); Imm Gran Pct Auto 0.3 % (0.0-0.4); Lymphocytes Absolute Auto 2.3 X10*3/uL (1.2-4.9); Lymphocytes Percent Auto 39.9 % (20-40); Mean Corpuscular HGB Conc 33.2 g/dl (31.0-36.0); Mean Corpuscular Hemoglobin 28.5 pg (27.0-33.0); Mean Corpuscular Volume 85.8 fL (80.0-98.0); Mean Platelet Volume 9.5 fL (9.4-12.4); Monocytes Absolute Auto 0.7 X10*3/uL (0.1-1.2); Monocytes Percent Auto 12.6 % (2-11); Neutrophils Absolute Auto 2.5 x10*3/uL (2.0-8.3); Neutrophils Percent Auto 42.4 % (45-73); Platelet Count 231 X10*3/uL (160-400); Red Blood Count 4.31 X10*6/uL (4.60-5.80); Red Cell Distribution Width 14.2 % (11.0-16.0); White Blood Count 5.9 X10*3/uL (4.8-10.8)
[2024-07-05 08:58] LABS: Ammonia 61 umol/L (13-55)
[2024-07-05 09:02] LABS: Valproate 42.4 mcg/mL (50.0-100.0)
[2024-07-05 09:15] LABS: Alanine Aminotransferase 35 U/L (0-40); Albumin Level 3.7 g/dL (3.5-5.0); Alkaline Phosphatase 79 U/L (39-117); Anion Gap 11 (12-20); Aspartate Amino Transferase 26 U/L (5-37); Bilirubin Direct < 0.2 mg/dL (0.0-0.5); Bilirubin Total 0.2 mg/dL (0.0-1.0); Blood Urea Nitrogen 16 mg/dL (9-16); Calcium 9.1 mg/dL (8.4-10.2); Carbon Dioxide 28 mmol/L (22-29); Chloride 102 mmol/L (96-108); Creatinine Clr Calc Pharmacy 152.6; Estimated Glomerular Filt Rate > 60; Glucose Random 149 mg/dL (60-115); Potassium 4.2 mmol/L (3.3-5.1); Sodium 137 mmol/L (135-145); Total Protein 7.3 g/dL (6.5-8.0)
[2024-07-05] MEDS: hydrOXYzine HCL 50 MG TABLET PO ×2 (09:15→21:41)
[2024-07-05 09:56] VITALS: BP 131/78; PULSE 82; RESP 16; TEMP 36.9; O2SAT 97
[2024-07-05] MEDS: methADONE HCl 20 MG/2 ML ORAL.CONC 10 MG PO (11:18)
[2024-07-05] MEDS: LORazepam 0.5 MG TABLET PO (11:33)
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
--- NOTE | 2024-07-05 15:38 | MHC.RECOVRN ---
Met with pt to follow up after receiving total 70 mg methadone today. Pt awake, alert, easily engages in conversation, active in common area of unit. Pt reports feeling good, denies withdrawal symptoms. Pt reports goal is to titrate back to 140 mg, a dose he had previously been stable on. Pt denies other questions or concerns for t/w. Discussed with Heidi Elmore APRN.
[2024-07-05 19:14] VITALS: BP 118/58; PULSE 79; RESP 16; TEMP 36.9; O2SAT 94
[2024-07-05] MEDS: Mirtazapine 15 MG TABLET PO (21:41)
[2024-07-05] MEDS: Melatonin 3 MG TABLET 6 MG PO (21:41)
[2024-07-05] MEDS: Atorvastatin Calcium 20 MG TABLET PO (21:41)
--- NOTE | 2024-07-06 | ECG_ITS ---
Test Reason : CK QT Blood Pressure : */* mmHG Vent. Rate : 82 BPM Atrial Rate : 82 BPM P-R Int : 190 ms QRS Dur : 98 ms QT Int : 382 ms P-R-T Axes : 56 65 40 degrees QTcB Int : 446 ms Normal sinus rhythm Normal ECG When compared to the previous EKG of No significant changes seen Referred By: Morelia Rai Electronically Signed By: Bennie Doyle
[2024-07-06 07:30] VITALS: BP 109/64; PULSE 73; RESP 16; TEMP 36.4; O2SAT 93
[2024-07-06] MEDS: methADONE HCl 20 MG/2 ML ORAL.CONC 70 MG PO (08:07)
[2024-07-06] MEDS: Gabapentin 300 MG CAPSULE 600 MG PO ×3 (08:27→22:11)
[2024-07-06] MEDS: Apixaban 5 MG TABLET PO ×2 (08:28→22:13)
[2024-07-06] MEDS: Divalproex Sodium 250 MG TABLET.DR 750 MG PO ×2 (08:28→22:12)
[2024-07-06] MEDS: buPROPion HCl XL 150 MG TAB.ER.24H 450 MG PO (08:28)
[2024-07-06] MEDS: Nicotine Polacrilex Lozenge 2 MG LOZENGE BUCCAL ×8 (08:31→22:16)
[2024-07-06] MEDS: LORazepam 0.5 MG TABLET PO (09:44)
[2024-07-06] MEDS: hydrOXYzine HCL 50 MG TABLET PO ×2 (11:23→19:59)
[2024-07-06] MEDS: OLANZapine 5 MG TABLET PO (12:41)
--- NOTE | 2024-07-06 13:22 | PC.NURSE ---
Addendum entered by Emerita Mei RN 07/06/24 15:03: Following meeting with Morelia Rai NP and Ernestina ellis pt briskly walked into his room, as I attempted to follow he slammed the door and said I want to be alone. Moments later his roommate shouted, He's hanging himself on the door. I pushed duress call , entered the room and removed the sheet from door and then head, removed broken pen from room, placed pt on 1:1. Provider, admin and SW informed. Zyprexa 5mg po prn given. Original Note: Following meeting with Morelia Rai NP and Ernestina ellis pt briskly walked into his room, as I attempted to follow he slammed the door and said I want to be alone. Moments later his roommate shouted, He's hanging himself on the door. pushed duress call , entered the room and removed the noose from door and then head, removed sharp object from room, placed pt on 1:1. Provider, admin and SW informed. Zyprexa 5mg po prn given.
[2024-07-06] MEDS: Lactulose 20 GM/30 ML SOLUTION 30 GM PO (14:37)
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
--- NOTE | 2024-07-06 15:25 | PC.NURSE ---
On review of video, the patient walked into his room, the nurse was outside of his door with another patient, within one minute of her walking away his roommate approached the door, the roommate then alerted staff for assistance. In the video, a reflection of the room can be seen, the door remained open from when the nurse walked away from his room, it can be seen that the patient was attempting to put something on the door then around his neck as staff approached.
--- NOTE | 2024-07-06 15:39 | PM.EVENT ---
Event Note Date of Service: 07/06/24 Event Note: Pt is a 49-year-old male admitted to [facility] with hospitalist consult for neck pain after pt attempted to strangle himself with a bed sheet tied around his neck and attached to the door. Pt reports pain is on left side of his neck radiating to the top of his head. No difficulty swallowing. Denies shortness or breath or difficulty breathing. Physical exam relatively benign with mild tenderness to lower left side of neck. Pt with preserved ROM of neck rotation, flexion, and extension. Pt observed to be moving his head without difficulties or pain. Able to handle secretions. Overall clinical picture is reassuring, but will get x-ray of cervical spine to rule out any acute abnormalities. Motrin 400 mg p.o. Q 6 p.r.n. for pain. Time Spent With Patient Time: Total time managing care of this patient today ____ minutes.
[2024-07-06 20:00] VITALS: BP 109/59; PULSE 74; RESP 15; TEMP 36.5; O2SAT 97
[2024-07-06] MEDS: Mirtazapine 30 MG TABLET PO (22:11)
[2024-07-06] MEDS: Melatonin 3 MG TABLET 6 MG PO (22:12)
[2024-07-06] MEDS: Atorvastatin Calcium 20 MG TABLET PO (22:13)
[2024-07-06] MEDS: QUEtiapine Fumarate 50 MG TABLET PO (22:16)
[2024-07-06] MEDS: Albuterol Sulfate 90 MCG 8 GM INHALER 2 PUFF INHALE (23:08)
[2024-07-07] MEDS: methADONE HCl 20 MG/2 ML ORAL.CONC 70 MG PO (08:06)
[2024-07-07 08:37] VITALS: BP 103/55; PULSE 72; RESP 16; TEMP 36.4; O2SAT 96
[2024-07-07] MEDS: Lactulose 20 GM/30 ML SOLUTION 30 GM PO (08:44)
[2024-07-07] MEDS: Nicotine Polacrilex Lozenge 2 MG LOZENGE BUCCAL ×8 (08:45→21:35)
[2024-07-07] MEDS: Gabapentin 300 MG CAPSULE 600 MG PO ×3 (08:45→21:34)
[2024-07-07] MEDS: OLANZapine 5 MG TABLET PO ×2 (08:45→21:34)
[2024-07-07] MEDS: Apixaban 5 MG TABLET PO ×2 (08:45→21:34)
[2024-07-07] MEDS: buPROPion HCl XL 150 MG TAB.ER.24H PO (08:45)
[2024-07-07] MEDS: Divalproex Sodium 250 MG TABLET.DR 750 MG PO ×2 (08:45→21:34)
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
[2024-07-07] MEDS: LORazepam 0.5 MG TABLET PO (10:10)
[2024-07-07] MEDS: buPROPion HCL 75 MG TABLET 150 MG PO (13:22)
[2024-07-07] MEDS: Ibuprofen 400 MG TABLET PO ×2 (15:29→21:35)
[2024-07-07] MEDS: Albuterol Sulfate 90 MCG 8 GM INHALER 2 PUFF INHALE (15:32)
[2024-07-07] MEDS: Acetaminophen 325 MG TABLET 975 MG PO (19:50)
[2024-07-07 20:00] VITALS: BP 102/58; PULSE 78; RESP 16; TEMP 36.9; O2SAT 93
[2024-07-07] MEDS: Mirtazapine 30 MG TABLET PO (21:34)
[2024-07-07] MEDS: Milk of Magnesia 30 ML ORAL.SUSP PO (21:34)
[2024-07-07] MEDS: Melatonin 3 MG TABLET 6 MG PO (21:34)
[2024-07-07] MEDS: Atorvastatin Calcium 20 MG TABLET PO (21:34)
[2024-07-07] MEDS: hydrOXYzine HCL 50 MG TABLET PO (21:35)
[2024-07-08] MEDS: Nicotine Polacrilex Lozenge 2 MG LOZENGE BUCCAL ×10 (01:10→23:26)
[2024-07-08] MEDS: methADONE HCl 20 MG/2 ML ORAL.CONC 70 MG PO (07:59)
[2024-07-08 08:24] VITALS: BP 93/57; PULSE 68; RESP 18; TEMP 36.8; O2SAT 96
[2024-07-08] MEDS: Apixaban 5 MG TABLET PO ×2 (08:32→21:35)
[2024-07-08] MEDS: Gabapentin 300 MG CAPSULE 600 MG PO ×3 (08:32→21:35)
[2024-07-08] MEDS: OLANZapine 5 MG TABLET PO ×2 (08:32→21:35)
[2024-07-08] MEDS: Divalproex Sodium 250 MG TABLET.DR 750 MG PO ×2 (08:32→21:35)
[2024-07-08] MEDS: buPROPion HCL 75 MG TABLET 150 MG PO ×2 (08:32→13:43)
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
[2024-07-08] MEDS: LORazepam 0.5 MG TABLET PO (16:02)
[2024-07-08 20:00] VITALS: BP 137/74; PULSE 83; RESP 16; TEMP 36.8; O2SAT 94
[2024-07-08] MEDS: Atorvastatin Calcium 20 MG TABLET PO (21:34)
[2024-07-08] MEDS: Mirtazapine 30 MG TABLET PO (21:35)
[2024-07-08] MEDS: Melatonin 3 MG TABLET 6 MG PO (21:35)
[2024-07-09] MEDS: Nicotine Polacrilex Lozenge 2 MG LOZENGE BUCCAL ×3 (05:33→11:07)
[2024-07-09] MEDS: methADONE HCl 20 MG/2 ML ORAL.CONC 70 MG PO (08:05)
[2024-07-09] MEDS: Divalproex Sodium 250 MG TABLET.DR 750 MG PO (08:36)
[2024-07-09] MEDS: Gabapentin 300 MG CAPSULE 600 MG PO (08:36)
[2024-07-09] MEDS: buPROPion HCL 75 MG TABLET 150 MG PO (08:36)
[2024-07-09] MEDS: OLANZapine 5 MG TABLET PO (08:37)
[2024-07-09] MEDS: Apixaban 5 MG TABLET PO (08:37)
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
[2024-07-09] MEDS: LORazepam 0.5 MG TABLET PO (11:07)
== END 2024-07-09 12:17 | disposition home or self-care (01) | DRG 885 ==
PROVIDERS: Physician Assistant; Admitting Provider Registered Nurse; Visit Provider Psychiatry & Neurology Psychiatry
DX: F33.9 Major depressive disorder, recurrent, unspecified (principal); F11.20 Opioid dependence, uncomplicated; R45.851 Suicidal ideations; F17.210 Nicotine dependence, cigarettes, uncomplicated; R45.850 Homicidal ideations; F10.90 Alcohol use, unspecified, uncomplicated; Z76.5 Malingerer [conscious simulation]; Z71.6 Tobacco abuse counseling; F43.10 Post-traumatic stress disorder, unspecified; F14.10 Cocaine abuse, uncomplicated; Z20.822 Contact with and (suspected) exposure to COVID-19; Z79.899 Other long term (current) drug therapy
CPT/HCPCS: 0241U; 36415; 71045; 72040; 80048; 80053; 80061; 80076; 80164; 82140; 85025; 93005

== ENCOUNTER → 2024-06-29 12:35 | Outpatient (BNV) | payer MEDICARE, SELFPAY | PROVIDERS: Admitting Provider Registered Nurse; Responsible Provider Registered Nurse; Visit Provider Registered Nurse | DX: F33.2 Major depressive disorder, recurrent severe without psychotic features (principal); F14.10 Cocaine abuse, uncomplicated; F11.90 Opioid use, unspecified, uncomplicated; F43.11 Post-traumatic stress disorder, acute; F10.90 Alcohol use, unspecified, uncomplicated | CPT/HCPCS: 90792; 99231; 99232; 99239 ==

== ENCOUNTER → 2024-06-29 12:35 | Outpatient (BNV) | payer MEDICARE, SELFPAY | PROVIDERS: Admitting Provider Registered Nurse; Responsible Provider Registered Nurse; Visit Provider Physician Assistant | DX: R06.02 Shortness of breath (principal) | CPT/HCPCS: 99222; 99499 ==

== ENCOUNTER → 2024-06-29 12:35 | Outpatient (BNV) | payer MEDICARE, SELFPAY | PROVIDERS: Admitting Provider Registered Nurse; Responsible Provider Registered Nurse; Visit Provider Nurse Practitioner Psychiatric/Mental Health | DX: F11.90 Opioid use, unspecified, uncomplicated (principal) | CPT/HCPCS: 99499 ==